=== PATIENT | female | born 1995 | race American Indian/Alaskan Native ===

== ENCOUNTER 2016-10-06 13:12 | Emergency (ER) | payer MEDICAID ==
[2016-10-06 13:27] VITALS: BP 137/93
[2016-10-06 14:04] LABS: Anion Gap 16 mmol/L; Blood Urea Nitrogen 9 mg/dL (7-17); Calcium 8.3 mg/dL (8.4-10.2); Carbon Dioxide 20 mmol/L (22-30); Chloride 102.6 mmol/L (98-107); Glucose 92 mg/dL (65-100); Potassium 3.5 mmol/L (3.6-5.0); Sodium 135 mmol/L (137-145)
[2016-10-06 14:42] LABS: Basophils % (Auto) 0.8 % (0.0-1.8); Eosinophils % (Auto) 0.5 % (0.0-4.3); Hematocrit 28.9 % (30.3-42.9); Hemoglobin 9.2 gm/dl (10.1-14.3); Mean Corpuscular HGB Conc 32 % (30-34); Platelet Count 326 K/mm3 (140-440); Red Blood Count 4.26 M/mm3 (3.65-5.03); Red Cell Distribution Width 19.7 % (13.2-15.2); White Blood Count 10.5 K/mm3 (4.5-11.0)
[2016-10-06 14:57] LABS: Mean Corpuscular Hemoglobin 22 pg (28-32); Mean Corpuscular Volume 68 fl (79-97)
--- NOTE | 2016-10-06 15:00 | XRay Report ---
CHEST XRAY, 2 VIEWS: History: Shortness of breath. Findings: There is coarsening of the perihilar markings. The lungs are clear and well expanded. The pleural spaces are clear. The cardiac silhouette and pulmonary vasculature are within normal limits for technique. The osseous structures appear within normal limits. IMPRESSION: Findings consistent with reactive airway disease or bronchiolitis.
== END 2016-10-06 19:58 | disposition left against medical advice (07) ==
LOC: ED 13:12
DX: R07.9 Chest pain, unspecified (principal); R06.02 Shortness of breath; J45.909 Unspecified asthma, uncomplicated; I10 Essential (primary) hypertension; Z53.21 Procedure and treatment not carried out due to patient leaving prior to being seen by health care provider
CPT/HCPCS: 36415; 71020; 80048; 84484; 85025; 93005; 93010

== ENCOUNTER 2017-03-09 11:38 | Inpatient (IN) | payer MEDICAID ==
[2017-03-09] MEDS ORDERED: NACL 0.9% 500 ML 500 ML IV ONE (11:48)
[2017-03-09 12:39] LABS: Albumin 2.3 g/dL (3.9-5); Albumin/Globulin Ratio 0.3 %; Alkaline Phosphatase 80 units/L (35-129); Anion Gap 16 mmol/L; BUN/Creatinine Ratio 20; Blood Urea Nitrogen 6 mg/dL (7-17); Calcium 7.9 mg/dL (8.4-10.2); Carbon Dioxide 21 mmol/L (22-30); Chloride 101.5 mmol/L (98-107); Glucose 76 mg/dL (65-100); Potassium 3.7 mmol/L (3.6-5.0); Sodium 135 mmol/L (137-145); Total Protein 9.3 g/dL (6.3-8.2)
[2017-03-09 12:40] LABS: Alanine Aminotransferase < 5 units/L (7-56)
[2017-03-09 12:48] LABS: Basophils % (Auto) 0.9 % (0.0-1.8); Eosinophils % (Auto) 2.8 % (0.0-4.3); Hematocrit 27.8 % (30.3-42.9); Hemoglobin 8.5 gm/dl (10.1-14.3); Mean Corpuscular HGB Conc 30 % (30-34); Mean Corpuscular Volume 72 fl (79-97); Platelet Count 354 K/mm3 (140-440); Red Blood Count 3.89 M/mm3 (3.65-5.03); White Blood Count 12.7 K/mm3 (4.5-11.0)
[2017-03-09 12:50] LABS: Mean Corpuscular Hemoglobin 22 pg (28-32); Red Cell Distribution Width 20.5 % (13.2-15.2)
[2017-03-09 12:58] LABS: INR 1.1 (0.87-1.13)
[2017-03-09 15:26] LABS: Bacteria,Urine 1+ /HPF (Negative); Bilirubin,Urine NEG (Negative); Blood,Urine MOD (Negative); Ketones,Urine NEG (Negative); Leukocyte Esterase,Urine TR (Negative); Mucus,Urine FEW /HPF; Nitrite,Urine NEG (Negative)
--- NOTE | 2017-03-09 16:18 | XRay Report ---
CHEST TWO VIEWS: 03/09/17 11:38:00 CLINICAL: Cough and fever. COMPARISON: 10/06/16 FINDINGS: Patchy opacities in the right upper lobe are new compared to the prior exam.Right hilar fullness. Bilateral perihilar reticular interstitial opacities are increased compared to the prior exam. Stable bilateral central peribronchial. No pleural effusion. Normal heart and pulmonary vessels.The bones and soft tissues are unremarkable. IMPRESSION: Right upper lobe pneumonia superimposed on chronic reactive airway disease.
[2017-03-09] MEDS ORDERED: ZITHROMAX PO ONE (17:48)
[2017-03-09] MEDS ORDERED: ROCEPHIN/NS 1 GM/50 ML 1 GM/50 ML BAG IV ONE (17:48)
[2017-03-09] MEDS ORDERED: NACL 0.9% 1000 ML IV ONE (17:48)
[2017-03-09] MEDS ORDERED: TYLENOL PO ONE (17:50)
--- NOTE | 2017-03-09 17:51 | Emergency Department Report ---
ED General Adult HPI - General Chief complaint: Upper Respiratory Infection Stated complaint: COUGHING, HEADACHE, FEVER Time Seen by Provider: 03/09/17 17:41 Source: patient, RN notes reviewed Mode of arrival: Ambulatory Limitations: No Limitations - History of Present Illness Initial comments: This is a 22-year-old female who is previously unknown to this provider. She does not have a local primary care doctor, she does not have a local infectious disease specialist, she is noncompliant with highly active antiretroviral therapy, does not know her CD4 count or viral load. Patient presents to the ER with a complaint of cough, fevers, chills, weakness. Also complains of mild frontal headache. Her symptoms are constant. They've been getting worse over the past few days. They do not radiate anywhere. They have no exacerbating or relieving factors. No neck pain or neck stiffness, no sore throat, no abdominal pain, noted no urinary symptoms. -: Gradual Location: head Consistency: intermittent Improves with: none Worsens with: none Associated Symptoms: cough, fever/chills, headaches, loss of appetite, malaise, shortness of breath, weakness. denies: confusion, chest pain - Related Data Home Medications Medication Instructions Recorded Confirmed Last Taken No Known Home Medications [No 10/06/16 10/06/16 Unknown Reported Home Medications] Allergies Allergy/AdvReac Type Severity Reaction Status Date / Time No Known Allergies Allergy Unverified 10/06/16 13:22 ED Review of Systems ROS: Stated complaint: COUGHING, HEADACHE, FEVER Other details as noted in HPI Constitutional: fever, malaise Eyes: denies: eye discharge Respiratory: cough, shortness of breath Cardiovascular: denies: syncope Gastrointestinal: denies: abdominal pain, vomiting Genitourinary: denies: dysuria Musculoskeletal: arthralgia, myalgia Neurological: weakness ED Past Medical Hx - Past Medical History Hx Hypertension: Yes Hx Asthma: Yes Hx HIV: Yes - Surgical History Additional Surgical History: Left ear surgery - Social History Smoking Status: Never Smoker Substance Use Type: None - Medications Home Medications: Home Medications Medication Instructions Recorded Confirmed Last Taken Type No Known Home Medications [No 10/06/16 10/06/16 Unknown History Reported Home Medications] ED Physical Exam - General Limitations: No Limitations General appearance: alert, in no apparent distress - Head Head exam: Present: atraumatic, normocephalic - Eye Eye exam: Present: normal appearance, EOMI - ENT ENT exam: Present: normal exam, mucous membranes dry - Neck Neck exam: Present: normal inspection, full ROM - Respiratory Respiratory exam: Present: rhonchi. Absent: respiratory distress - Cardiovascular Cardiovascular Exam: Present: normal rhythm, tachycardia, normal heart sounds. Absent: systolic murmur, diastolic murmur, rubs, gallop - GI/Abdominal GI/Abdominal exam: Present: soft, normal bowel sounds. Absent: distended, tenderness, guarding, rebound, rigid, pulsatile mass - Extremities Exam Extremities exam: Present: normal inspection, full ROM, normal capillary refill. Absent: calf tenderness - Back Exam Back exam: Present: normal inspection, full ROM. Absent: tenderness, CVA tenderness (R), paraspinal tenderness, vertebral tenderness - Neurological Exam Neurological exam: Present: alert, oriented X3, other (Extraocular movements intact. Tongue midline. No facial droop. Facial sensation intact to light touch in the V1, V2, V3 distribution bilaterally. 5 and 5 strength in 4 extremities.. Sensation is intact to light touch in 4 extremities.). Absent: motor sensory deficit - Psychiatric Psychiatric exam: Present: normal affect, normal mood - Skin Skin exam: Present: warm, dry, intact, normal color. Absent: rash ED Course Vital Signs 03/09/17 11:45 Temperature 99.3 F Pulse Rate 108 H Respiratory 22 Rate Blood Pressure 150/78 ED Medical Decision Making - Lab Data Result diagrams: 03/09/17 11:58 03/09/17 11:58 Vital Signs 03/09/17 11:45 Temperature 99.3 F Pulse Rate 108 H Respiratory 22 Rate Blood Pressure 150/78 Lab Results 03/09/17 03/09/17 03/09/17 Range/Units 11:58 11:58 11:58 WBC 12.7 H (4.5-11.0) K/mm3 RBC 3.89 (3.65-5.03) M/mm3 Hgb 8.5 L (10.1-14.3) gm/dl Hct 27.8 L (30.3-42.9) % MCV 72 L (79-97) fl MCH 22 L (28-32) pg MCHC 30 (30-34) % RDW 20.5 H (13.2-15.2) % Plt Count 354 (140-440) K/mm3 Lymph % (Auto) 31.9 (13.4-35.0) % [place] % (Auto) 11.7 H (0.0-7.3) % Eos % (Auto) 2.8 (0.0-4.3) % Baso % (Auto) 0.9 (0.0-1.8) % Lymph # 4.1 (1.2-5.4) K/mm3 [place] # 1.5 H (0.0-0.8) K/mm3 Eos # 0.4 (0.0-0.4) K/mm3 Baso # 0.1 (0.0-0.1) K/mm3 Seg Neutrophils % 52.7 (40.0-70.0) % Seg Neutrophils # 6.7 (1.8-7.7) K/mm3 PT 14.8 (12.2-14.9) Sec. INR 1.10 (0.87-1.13) VBG pH (7.320-7.420) Sodium 135 L (137-145) mmol/L Potassium 3.7 (3.6-5.0) mmol/L Chloride 101.5 (98-107) mmol/L Carbon Dioxide 21 L (22-30) mmol/L Anion Gap 16 mmol/L BUN 6 L (7-17) mg/dL Creatinine 0.3 L (0.7-1.2) mg/dL Estimated GFR > 60 ml/min BUN/Creatinine Ratio 20 % Glucose 76 (65-100) mg/dL Lactic Acid (0.7-2.0) mmol/L Calcium 7.9 L (8.4-10.2) mg/dL Total Bilirubin 0.30 (0.1-1.2) mg/dL AST 17 (5-40) units/L ALT < 5 L (7-56) units/L Alkaline Phosphatase 80 (35-129) units/L Total Protein 9.3 H (6.3-8.2) g/dL Albumin 2.3 L (3.9-5) g/dL Albumin/Globulin Ratio 0.3 % Urine Color (Yellow) Urine Turbidity (Clear) Urine pH (5.0-7.0) Ur Specific [place] (1.003-1.030) Urine Protein (Negative) mg/dL Urine Glucose (UA) (Negative) mg/dL Urine Ketones (Negative) mg/dL Urine Blood (Negative) Urine Nitrite (Negative) Ur Reducing Substances Urine Bilirubin (Negative) Urine Ictotest Urine Urobilinogen (<2.0) mg/dL Ur Leukocyte Esterase (Negative) Urine WBC (Auto) (0.0-6.0) /HPF Urine RBC (Auto) (0.0-6.0) /HPF U Epithel Cells (Auto) (0-13.0) /HPF Urine Bacteria (Auto) (Negative) /HPF Hyaline Casts /LPF Urine Mucus /HPF Urine HCG, Qual (Negative) 03/09/17 03/09/17 03/09/17 Range/Units 11:58 11:58 14:54 WBC (4.5-11.0) K/mm3 RBC (3.65-5.03) M/mm3 Hgb (10.1-14.3) gm/dl Hct (30.3-42.9) % MCV (79-97) fl MCH (28-32) pg MCHC (30-34) % RDW (13.2-15.2) % Plt Count (140-440) K/mm3 Lymph % (Auto) (13.4-35.0) % [place] % (Auto) (0.0-7.3) % Eos % (Auto) (0.0-4.3) % Baso % (Auto) (0.0-1.8) % Lymph # (1.2-5.4) K/mm3 [place] # (0.0-0.8) K/mm3 Eos # (0.0-0.4) K/mm3 Baso # (0.0-0.1) K/mm3 Seg Neutrophils % (40.0-70.0) % Seg Neutrophils # (1.8-7.7) K/mm3 PT (12.2-14.9) Sec. INR (0.87-1.13) VBG pH 7.384 (7.320-7.420) Sodium (137-145) mmol/L Potassium (3.6-5.0) mmol/L Chloride (98-107) mmol/L Carbon Dioxide (22-30) mmol/L Anion Gap mmol/L BUN (7-17) mg/dL Creatinine (0.7-1.2) mg/dL Estimated GFR ml/min BUN/Creatinine Ratio % Glucose (65-100) mg/dL Lactic Acid 1.30 (0.7-2.0) mmol/L Calcium (8.4-10.2) mg/dL Total Bilirubin (0.1-1.2) mg/dL AST (5-40) units/L ALT (7-56) units/L Alkaline Phosphatase (35-129) units/L Total Protein (6.3-8.2) g/dL Albumin (3.9-5) g/dL Albumin/Globulin Ratio % Urine Color Yellow (Yellow) Urine Turbidity Clear (Clear) Urine pH 6.0 (5.0-7.0) Ur Specific [place] 1.023 (1.003-1.030) Urine Protein 100 mg/dl (Negative) mg/dL Urine Glucose (UA) Neg (Negative) mg/dL Urine Ketones Neg (Negative) mg/dL Urine Blood Mod (Negative) Urine Nitrite Neg (Negative) Ur Reducing Substances Not Reportable Urine Bilirubin Neg (Negative) Urine Ictotest Not Reportable Urine Urobilinogen 4.0 (<2.0) mg/dL Ur Leukocyte Esterase Tr (Negative) Urine WBC (Auto) 3.0 (0.0-6.0) /HPF Urine RBC (Auto) 35.0 (0.0-6.0) /HPF U Epithel Cells (Auto) 7.0 (0-13.0) /HPF Urine Bacteria (Auto) 1+ (Negative) /HPF Hyaline Casts 3 /LPF Urine Mucus Few /HPF Urine HCG, Qual Negative (Negative) 03/09/17 Range/Units 15:00 WBC (4.5-11.0) K/mm3 RBC (3.65-5.03) M/mm3 Hgb (10.1-14.3) gm/dl Hct (30.3-42.9) % MCV (79-97) fl MCH (28-32) pg MCHC (30-34) % RDW (13.2-15.2) % Plt Count (140-440) K/mm3 Lymph % (Auto) (13.4-35.0) % [place] % (Auto) (0.0-7.3) % Eos % (Auto) (0.0-4.3) % Baso % (Auto) (0.0-1.8) % Lymph # (1.2-5.4) K/mm3 [place] # (0.0-0.8) K/mm3 Eos # (0.0-0.4) K/mm3 Baso # (0.0-0.1) K/mm3 Seg Neutrophils % (40.0-70.0) % Seg Neutrophils # (1.8-7.7) K/mm3 PT (12.2-14.9) Sec. INR (0.87-1.13) VBG pH (7.320-7.420) Sodium (137-145) mmol/L Potassium (3.6-5.0) mmol/L Chloride (98-107) mmol/L Carbon Dioxide (22-30) mmol/L Anion Gap mmol/L BUN (7-17) mg/dL Creatinine (0.7-1.2) mg/dL Estimated GFR ml/min BUN/Creatinine Ratio % Glucose (65-100) mg/dL Lactic Acid 2.20 H* (0.7-2.0) mmol/L Calcium (8.4-10.2) mg/dL Total Bilirubin (0.1-1.2) mg/dL AST (5-40) units/L ALT (7-56) units/L Alkaline Phosphatase (35-129) units/L Total Protein (6.3-8.2) g/dL Albumin (3.9-5) g/dL Albumin/Globulin Ratio % Urine Color (Yellow) Urine Turbidity (Clear) Urine pH (5.0-7.0) Ur Specific [place] (1.003-1.030) Urine Protein (Negative) mg/dL Urine Glucose (UA) (Negative) mg/dL Urine Ketones (Negative) mg/dL Urine Blood (Negative) Urine Nitrite (Negative) Ur Reducing Substances Urine Bilirubin (Negative) Urine Ictotest Urine Urobilinogen (<2.0) mg/dL Ur Leukocyte Esterase (Negative) Urine WBC (Auto) (0.0-6.0) /HPF Urine RBC (Auto) (0.0-6.0) /HPF U Epithel Cells (Auto) (0-13.0) /HPF Urine Bacteria (Auto) (Negative) /HPF Hyaline Casts /LPF Urine Mucus /HPF Urine HCG, Qual (Negative) - EKG Data -: EKG Interpreted by Dc - EKG Data 03/09/17 18:29 Sinus tachycardia, 103 bpm, normal axis, normal intervals, poor R progression, abnormal EKG, not morphologically consistent with ST elevation myocardial infarction - Radiology Data Radiology results: report reviewed, image reviewed X-ray of the chest demonstrates right upper lobe pneumonia. - Medical Decision Making Differential diagnosis, including but not limited to: Pneumonia, bronchitis, tuberculosis, HIV/AIDS, PCP Assessment and plan: 22-year-old female who by Angel of tachycardia, leukocytosis and x-ray findings rules in for sepsis and pneumonia. Immune compromise, patient will be placed on airborne precautions and she will be ruled out for tuberculosis. She'll be treated along with sepsis pathway for standard community-acquired pneumonia with ceftriaxone and azithromycin. LDH is ordered. Has rhonchi but no significant wheezing. Case presented to the Hospital physician, Dr. Pimentel, who accepted the patient to his service. Critical care attestation.: If time is entered above; I have spent that time in minutes in the direct care of this critically ill patient, excluding procedure time. ED Disposition Clinical Impression: SIRS (systemic inflammatory response syndrome) Right upper lobe pneumonia Qualifiers: Pneumonia type: due to unspecified organism Qualified Code(s): J18.1 - Lobar pneumonia, unspecified organism Disposition: -09 OP ADMIT IP TO THIS HOSP Is pt being admited?: Yes Condition: Good Instructions: Bacterial Pneumonia (ED) Referrals: PRIMARY CARE, [Primary Care Provider] - 3-5 Days
[2017-03-09] MEDS ORDERED: cefTRIAXone 1 GM in NACL 0.9% 20 ML IV ONE (18:00)
[2017-03-09] MEDS ORDERED: ZOFRAN IV PRN (22:02)
[2017-03-09] MEDS ORDERED: DULCOLAX PR PRN (22:02)
[2017-03-09] MEDS ORDERED: TYLENOL PO PRN (22:02)
[2017-03-09] MEDS ORDERED: MILK OF MAGNESIA PO PRN (22:02)
--- NOTE | 2017-03-09 22:02 | History and Physical Report ---
History of Present Illness Date of examination: 03/09/17 Date of admission: 03/09/17 18:30 Chief complaint: See in reports -dictated H/p History of present illness: See Dictated H/p in reports Medications and Allergies Allergies Allergy/AdvReac Type Severity Reaction Status Date / Time No Known Allergies Allergy Unverified 10/06/16 13:22 Home Medications Medication Instructions Recorded Confirmed Last Taken Type No Known Home Medications [No 10/06/16 03/09/17 Unknown History Reported Home Medications] Exam - Constitutional Vitals: Temp Pulse Resp BP Pulse Ox 98.5 F 93 H 24 122/79 100 03/09/17 21:09 03/09/17 21:09 03/09/17 21:09 03/09/17 21:09 03/09/17 21:09 Results - Labs CBC & Chem 7: 03/10/17 07:59 03/10/17 07:59 Labs: Laboratory Last Values WBC 12.7 K/mm3 (4.5-11.0) H 03/09/17 11:58 RBC 3.89 M/mm3 (3.65-5.03) 03/09/17 11:58 Hgb 8.5 gm/dl (10.1-14.3) L 03/09/17 11:58 Hct 27.8 % (30.3-42.9) L 03/09/17 11:58 MCV 72 fl (79-97) L 03/09/17 11:58 MCH 22 pg (28-32) L 03/09/17 11:58 MCHC 30 % (30-34) 03/09/17 11:58 RDW 20.5 % (13.2-15.2) H 03/09/17 11:58 Plt Count 354 K/mm3 (140-440) 03/09/17 11:58 Lymph % (Auto) 31.9 % (13.4-35.0) 03/09/17 11:58 [place] % (Auto) 11.7 % (0.0-7.3) H 03/09/17 11:58 Eos % (Auto) 2.8 % (0.0-4.3) 03/09/17 11:58 Baso % (Auto) 0.9 % (0.0-1.8) 03/09/17 11:58 Lymph # 4.1 K/mm3 (1.2-5.4) 03/09/17 11:58 [place] # 1.5 K/mm3 (0.0-0.8) H 03/09/17 11:58 Eos # 0.4 K/mm3 (0.0-0.4) 03/09/17 11:58 Baso # 0.1 K/mm3 (0.0-0.1) 03/09/17 11:58 Seg Neutrophils % 52.7 % (40.0-70.0) 03/09/17 11:58 Seg Neutrophils # 6.7 K/mm3 (1.8-7.7) 03/09/17 11:58 PT 14.8 Sec. (12.2-14.9) 03/09/17 11:58 INR 1.10 (0.87-1.13) 03/09/17 11:58 VBG pH 7.384 (7.320-7.420) 03/09/17 11:58 Sodium 135 mmol/L (137-145) L 03/09/17 11:58 Potassium 3.7 mmol/L (3.6-5.0) 03/09/17 11:58 Chloride 101.5 mmol/L (98-107) 03/09/17 11:58 Carbon Dioxide 21 mmol/L (22-30) L 03/09/17 11:58 Anion Gap 16 mmol/L 03/09/17 11:58 BUN 6 mg/dL (7-17) L 03/09/17 11:58 Creatinine 0.3 mg/dL (0.7-1.2) L 03/09/17 11:58 Estimated GFR > 60 ml/min 03/09/17 11:58 BUN/Creatinine Ratio 20 % 03/09/17 11:58 Glucose 76 mg/dL (65-100) 03/09/17 11:58 Lactic Acid 2.20 mmol/L (0.7-2.0) H* 03/09/17 15:00 Calcium 7.9 mg/dL (8.4-10.2) L 03/09/17 11:58 Total Bilirubin 0.30 mg/dL (0.1-1.2) 03/09/17 11:58 AST 17 units/L (5-40) 03/09/17 11:58 ALT < 5 units/L (7-56) L 03/09/17 11:58 Alkaline Phosphatase 80 units/L (35-129) 03/09/17 11:58 Lactate Dehydrogenase 144 units/L (91-180) 03/09/17 18:31 Total Protein 9.3 g/dL (6.3-8.2) H 03/09/17 11:58 Albumin 2.3 g/dL (3.9-5) L 03/09/17 11:58 Albumin/Globulin Ratio 0.3 % 03/09/17 11:58 Urine Color Yellow (Yellow) 03/09/17 14:54 Urine Turbidity Clear (Clear) 03/09/17 14:54 Urine pH 6.0 (5.0-7.0) 03/09/17 14:54 Ur Specific [place] 1.023 (1.003-1.030) 03/09/17 14:54 Urine Protein 100 mg/dl mg/dL (Negative) 03/09/17 14:54 Urine Glucose (UA) Neg mg/dL (Negative) 03/09/17 14:54 Urine Ketones Neg mg/dL (Negative) 03/09/17 14:54 Urine Blood Mod (Negative) 03/09/17 14:54 Urine Nitrite Neg (Negative) 03/09/17 14:54 Ur Reducing Substances Not Reportable 03/09/17 14:54 Urine Bilirubin Neg (Negative) 03/09/17 14:54 Urine Ictotest Not Reportable 03/09/17 14:54 Urine Urobilinogen 4.0 mg/dL (<2.0) 03/09/17 14:54 Ur Leukocyte Esterase Tr (Negative) 03/09/17 14:54 Urine WBC (Auto) 3.0 /HPF (0.0-6.0) 03/09/17 14:54 Urine RBC (Auto) 35.0 /HPF (0.0-6.0) 03/09/17 14:54 U Epithel Cells (Auto) 7.0 /HPF (0-13.0) 03/09/17 14:54 Urine Bacteria (Auto) 1+ /HPF (Negative) 03/09/17 14:54 Hyaline Casts 3 /LPF 03/09/17 14:54 Urine Mucus Few /HPF 03/09/17 14:54 Urine HCG, Qual Negative (Negative) 03/09/17 14:54
[2017-03-09] MEDS ORDERED: MORPHINE IV PRN (22:03)
[2017-03-09] MEDS ORDERED: PERCOCET 5/325 PO PRN (22:03)
[2017-03-10] MEDS: D5NS 1,000 ML IV SCH ×2 (01:45→11:09)
[2017-03-10 08:34] LABS: Hematocrit 27.2 % (30.3-42.9); Hemoglobin 8.4 gm/dl (10.1-14.3); Mean Corpuscular HGB Conc 31 % (30-34); Mean Corpuscular Hemoglobin 22 pg (28-32); Mean Corpuscular Volume 71 fl (79-97); Platelet Count 291 K/mm3 (140-440); Red Blood Count 3.85 M/mm3 (3.65-5.03); Red Cell Distribution Width 20.3 % (13.2-15.2); White Blood Count 8.1 K/mm3 (4.5-11.0)
[2017-03-10 08:44] LABS: Albumin 2.1 g/dL (3.9-5); Albumin/Globulin Ratio 0.3 %; Alkaline Phosphatase 70 units/L (35-129); Anion Gap 14 mmol/L; BUN/Creatinine Ratio 13; Blood Urea Nitrogen 4 mg/dL (7-17); Calcium 7.7 mg/dL (8.4-10.2); Carbon Dioxide 20 mmol/L (22-30); Chloride 107.1 mmol/L (98-107); Glucose 93 mg/dL (65-100); Potassium 3.6 mmol/L (3.6-5.0); Sodium 137 mmol/L (137-145); Total Protein 8.7 g/dL (6.3-8.2)
[2017-03-10 08:45] LABS: Alanine Aminotransferase < 5 units/L (7-56)
[2017-03-10 09:32] LABS: Anisocytosis 1+; Basophils % (Manual) 0 % (0.0-1.8); Blastocytes % (Manual) 0 %; Diff Status Complete; Platelet Estimate Consistent w Auto
[2017-03-10] MEDS ORDERED: ROCEPHIN/NS 2 GM/100 ML 2 GM/100 ML BAG IV SCH (10:00)
[2017-03-10] MEDS ORDERED: ZITHROMAX 500 MG in NACL 0.9% 250ML 250 ML IV SCH (10:00)
--- NOTE | 2017-03-10 10:13 | History and Physical Report ---
CHIEF COMPLAINT: Cough and chills of 1-week duration. HISTORY OF PRESENT ILLNESS: A 22-year-old female with recently diagnosed HIV, comes in for cough and shortness of breath of 1-month duration, but more so for the last 1 week. Has been having cough, fevers, chills, and weakness. Cough productive of mucoid sputum. No chest pain. No radiation. No neck pain. No altered sensorium. PAST MEDICAL HISTORY: As mentioned, hypertension, asthma, and HIV. PAST SURGICAL HISTORY: Left ear surgery. SOCIAL HISTORY: Does not smoke. No alcohol, no recreational drugs. FAMILY HISTORY: Hypertension. CURRENT MEDICATIONS: None. REVIEW OF SYSTEMS: Significant for fever, chills, cough, shortness of breath for 1 week. Cough off and on for the last 1 month. PHYSICAL EXAMINATION: GENERAL: Young female, cooperative during examination. VITAL SIGNS: Temperature is 97.4, pulse is 92, respirations 17, blood pressure is 127/79. HEENT: Unremarkable. Pupils equal and reactive. NECK: Supple, no lymphadenopathy, no thyromegaly. LUNGS: Scattered rhonchi bilaterally. CARDIOVASCULAR: S1, S2 heard. No gallop, no murmur, no rub. Apical impulse in left fifth intercostal space and midclavicular line. ABDOMEN: Soft and benign. No hepatosplenomegaly. No guarding, no rigidity. Hernial orifices are normal. EXTREMITIES: Good pedal pulses. No pedal edema. CENTRAL NERVOUS SYSTEM: Alert and oriented x 4, nonfocal exam. SKIN: Normal. LABORATORY DATA: White count is 12,700, H and H is 8.5 and 27.8, platelet count is 354,000. Sodium is 135, potassium is 3.7, chloride is 101.5, bicarb is 21, BUN and creatinine 6 and 0.3, glucose is 76. Chest x-ray shows right upper lobe pneumonia superimposed and chronic reactive airway disease, bilateral perihilar reticular interstitial opacities. ASSESSMENT AND PLAN: 1. Right upper lobe pneumonia, probably community acquired pneumonia, but tuberculosis to be ruled out because of 1-month duration of cough and low-grade fevers and chills. I will request ID consult. The patient started on empirically Rocephin and Zithromax to cover community-acquired pneumonia organisms. 2. Hypertension by history. The patient not on any medications. Blood pressures have been normal. We will initiate blood pressure medication if necessary. 3. Asthma. Bronchodilator as necessary. 4. Human immunodeficiency virus disease. We will defer to ID. The patient to follow up with ID clinic as outpatient. 5. DVT prophylaxis. Lovenox 40 mg subcutaneous daily. The patient is isolated. JOB# [id number] GEORGE/SHAHIDA
[2017-03-10] MEDS: cefTRIAXone 1 GM in NACL 0.9% 20 ML IV SCH (10:39)
[2017-03-10] MEDS: PEPCID PO SCH ×2 (10:40→22:50)
--- NOTE | 2017-03-10 13:11 | Progress Note ---
Assessment and Plan Assessment and plan: Right upper lobe pneumonia. Patient admitted to Med/Surg. Continue Rocephin and Zithromax. May be community acquired . need to rule out tuberculosis since patient has HIV positive. Obtain sputum AFB 3. Continue airborne isolation. ID Physician consulted. HIV infection. Patient noncompliant Hypertension. BP stable. will monitor. Asthma. Albuterol prn. DVT prophylaxis. heparin subcut. History Interval history: Fever and chills Cough Gen weakness Hospitalist Physical - Physical exam Narrative exam: GEN APPEARANCE : Not in acute distress, HEENT: Normocephalic Atraumatic NECK : supple, no JVD LUNGS: Crackles right upper lung field, no wheeze HEART: S1 and S2 regular, no murmurs, rubs or gallop, ABD: Soft, no tenderness, no distension, normal bowel sounds EXT: No edema, no clubbing, no cyanosis NEURO: Awake,alert,oriented x 3. No focal signs - Constitutional Vitals: Temp Pulse Resp BP Pulse Ox 98.8 F 96 H 20 127/71 97 03/10/17 08:29 03/10/17 08:29 03/10/17 08:29 03/10/17 08:29 03/10/17 08:29 Results - Labs CBC & Chem 7: 03/10/17 07:59 03/10/17 07:59 Labs: Laboratory Last Values WBC 8.1 K/mm3 (4.5-11.0) 03/10/17 07:59 RBC 3.85 M/mm3 (3.65-5.03) 03/10/17 07:59 Hgb 8.4 gm/dl (10.1-14.3) L 03/10/17 07:59 Hct 27.2 % (30.3-42.9) L 03/10/17 07:59 MCV 71 fl (79-97) L 03/10/17 07:59 MCH 22 pg (28-32) L 03/10/17 07:59 MCHC 31 % (30-34) 03/10/17 07:59 RDW 20.3 % (13.2-15.2) H 03/10/17 07:59 Plt Count 291 K/mm3 (140-440) 03/10/17 07:59 Lymph % (Auto) 31.9 % (13.4-35.0) 03/09/17 11:58 [place] % (Auto) 11.7 % (0.0-7.3) H 03/09/17 11:58 Eos % (Auto) 2.8 % (0.0-4.3) 03/09/17 11:58 Baso % (Auto) Coin Machine Operator 03/10/17 07:59 Lymph # 4.1 K/mm3 (1.2-5.4) 03/09/17 11:58 [place] # 1.5 K/mm3 (0.0-0.8) H 03/09/17 11:58 Eos # 0.4 K/mm3 (0.0-0.4) 03/09/17 11:58 Baso # 0.1 K/mm3 (0.0-0.1) 03/09/17 11:58 Add Manual Diff Complete 03/10/17 07:59 Total Counted 100 03/10/17 07:59 Seg Neutrophils % 52.7 % (40.0-70.0) 03/09/17 11:58 Seg Neuts % (Manual) 49.0 % (40.0-70.0) 03/10/17 07:59 Band Neutrophils % 0 % 03/10/17 07:59 Lymphocytes % (Manual) 33.0 % (13.4-35.0) 03/10/17 07:59 Reactive Lymphs % (Man) 0 % 03/10/17 07:59 Monocytes % (Manual) 12.0 % (0.0-7.3) H 03/10/17 07:59 Eosinophils % (Manual) 6.0 % (0.0-4.3) H 03/10/17 07:59 Basophils % (Manual) 0 % (0.0-1.8) 03/10/17 07:59 Metamyelocytes % 0 % 03/10/17 07:59 Myelocytes % 0 % 03/10/17 07:59 Promyelocytes % 0 % 03/10/17 07:59 Blast Cells % 0 % 03/10/17 07:59 Nucleated RBC % Not Reportable 03/10/17 07:59 Seg Neutrophils # 6.7 K/mm3 (1.8-7.7) 03/09/17 11:58 Seg Neutrophils # Man 4.0 K/mm3 (1.8-7.7) 03/10/17 07:59 Band Neutrophils # 0.0 K/mm3 03/10/17 07:59 Lymphocytes # (Manual) 2.7 K/mm3 (1.2-5.4) 03/10/17 07:59 Abs React Lymphs (Man) 0.0 K/mm3 03/10/17 07:59 Monocytes # (Manual) 1.0 K/mm3 (0.0-0.8) H 03/10/17 07:59 Eosinophils # (Manual) 0.5 K/mm3 (0.0-0.4) H 03/10/17 07:59 Basophils # (Manual) 0.0 K/mm3 (0.0-0.1) 03/10/17 07:59 Metamyelocytes # 0.0 K/mm3 03/10/17 07:59 Myelocytes # 0.0 K/mm3 03/10/17 07:59 Promyelocytes # 0.0 K/mm3 03/10/17 07:59 Blast Cells # 0.0 K/mm3 03/10/17 07:59 WBC Morphology Not Reportable 03/10/17 07:59 Hypersegmented Neuts Not Reportable 03/10/17 07:59 Hyposegmented Neuts Not Reportable 03/10/17 07:59 Hypogranular Neuts Not Reportable 03/10/17 07:59 Smudge Cells Not Reportable 03/10/17 07:59 Toxic Granulation Not Reportable 03/10/17 07:59 Toxic Vacuolation Not Reportable 03/10/17 07:59 Dohle Bodies Not Reportable 03/10/17 07:59 Pelger-Huet Anomaly Not Reportable 03/10/17 07:59 Daija Rods Not Reportable 03/10/17 07:59 Platelet Estimate Consistent w auto 03/10/17 07:59 Clumped Platelets Not Reportable 03/10/17 07:59 Plt Clumps, EDTA Not Reportable 03/10/17 07:59 Large Platelets Not Reportable 03/10/17 07:59 Giant Platelets Not Reportable 03/10/17 07:59 Platelet Satelliting Not Reportable 03/10/17 07:59 Plt Morphology Comment Not Reportable 03/10/17 07:59 RBC Morphology Not Reportable 03/10/17 07:59 Dimorphic RBCs Not Reportable 03/10/17 07:59 Polychromasia Not Reportable 03/10/17 07:59 Hypochromasia Not Reportable 03/10/17 07:59 Poikilocytosis Not Reportable 03/10/17 07:59 Anisocytosis 1+ 03/10/17 07:59 Microcytosis Not Reportable 03/10/17 07:59 Macrocytosis Not Reportable 03/10/17 07:59 Spherocytes Not Reportable 03/10/17 07:59 Pappenheimer Bodies Not Reportable 03/10/17 07:59 Sickle Cells Not Reportable 03/10/17 07:59 Target Cells Not Reportable 03/10/17 07:59 Tear Drop Cells Not Reportable 03/10/17 07:59 Ovalocytes Not Reportable 03/10/17 07:59 Helmet Cells Not Reportable 03/10/17 07:59 Frankel-[place]aug[place] Bodies Not Reportable 03/10/17 07:59 [place] Rings Not Reportable 03/10/17 07:59 [place] Cells Not Reportable 03/10/17 07:59 Bite Cells Not Reportable 03/10/17 07:59 Crenated Cell Not Reportable 03/10/17 07:59 Elliptocytes Not Reportable 03/10/17 07:59 Acanthocytes (Spur) Not Reportable 03/10/17 07:59 Rouleaux Not Reportable 03/10/17 07:59 Hemoglobin C Crystals Not Reportable 03/10/17 07:59 Schistocytes Not Reportable 03/10/17 07:59 Malaria parasites Not Reportable 03/10/17 07:59 Erich Bodies Not Reportable 03/10/17 07:59 Hem Pathologist Commnt No 03/10/17 07:59 PT 14.8 Sec. (12.2-14.9) 03/09/17 11:58 INR 1.10 (0.87-1.13) 03/09/17 11:58 VBG pH 7.384 (7.320-7.420) 03/09/17 11:58 Sodium 137 mmol/L (137-145) 03/10/17 07:59 Potassium 3.6 mmol/L (3.6-5.0) 03/10/17 07:59 Chloride 107.1 mmol/L (98-107) H 03/10/17 07:59 Carbon Dioxide 20 mmol/L (22-30) L 03/10/17 07:59 Anion Gap 14 mmol/L 03/10/17 07:59 BUN 4 mg/dL (7-17) L 03/10/17 07:59 Creatinine 0.3 mg/dL (0.7-1.2) L 03/10/17 07:59 Estimated GFR > 60 ml/min 03/10/17 07:59 BUN/Creatinine Ratio 13 % 03/10/17 07:59 Glucose 93 mg/dL (65-100) 03/10/17 07:59 Lactic Acid 2.20 mmol/L (0.7-2.0) H* 03/09/17 15:00 Calcium 7.7 mg/dL (8.4-10.2) L 03/10/17 07:59 Total Bilirubin 0.20 mg/dL (0.1-1.2) 03/10/17 07:59 AST 14 units/L (5-40) 03/10/17 07:59 ALT < 5 units/L (7-56) L 03/10/17 07:59 Alkaline Phosphatase 70 units/L (35-129) 03/10/17 07:59 Lactate Dehydrogenase 144 units/L (91-180) 03/09/17 18:31 Total Protein 8.7 g/dL (6.3-8.2) H 03/10/17 07:59 Albumin 2.1 g/dL (3.9-5) L 03/10/17 07:59 Albumin/Globulin Ratio 0.3 % 03/10/17 07:59 Urine Color Yellow (Yellow) 03/09/17 14:54 Urine Turbidity Clear (Clear) 03/09/17 14:54 Urine pH 6.0 (5.0-7.0) 03/09/17 14:54 Ur Specific [place] 1.023 (1.003-1.030) 03/09/17 14:54 Urine Protein 100 mg/dl mg/dL (Negative) 03/09/17 14:54 Urine Glucose (UA) Neg mg/dL (Negative) 03/09/17 14:54 Urine Ketones Neg mg/dL (Negative) 03/09/17 14:54 Urine Blood Mod (Negative) 03/09/17 14:54 Urine Nitrite Neg (Negative) 03/09/17 14:54 Ur Reducing Substances Not Reportable 03/09/17 14:54 Urine Bilirubin Neg (Negative) 03/09/17 14:54 Urine Ictotest Not Reportable 03/09/17 14:54 Urine Urobilinogen 4.0 mg/dL (<2.0) 03/09/17 14:54 Ur Leukocyte Esterase Tr (Negative) 03/09/17 14:54 Urine WBC (Auto) 3.0 /HPF (0.0-6.0) 03/09/17 14:54 Urine RBC (Auto) 35.0 /HPF (0.0-6.0) 03/09/17 14:54 U Epithel Cells (Auto) 7.0 /HPF (0-13.0) 03/09/17 14:54 Urine Bacteria (Auto) 1+ /HPF (Negative) 03/09/17 14:54 Hyaline Casts 3 /LPF 03/09/17 14:54 Urine Mucus Few /HPF 03/09/17 14:54 Urine HCG, Qual Negative (Negative) 03/09/17 14:54
[2017-03-10] MEDS ORDERED: PROVENTIL IH PRN (15:24)
--- NOTE | 2017-03-10 20:31 | Consultation ---
History of Present Illness - Reason for Consult Consult date: 03/10/17 HIV/pneumonia Requesting physician: PAO SUMMERS - History of Present Illness 22 years old female with history of HTN, asthma and congenital HIV off ART for 6 months. She moved from [facility] to [place], [place] and she has not established HIV care. Admitted on due to 2-week history of productive cough/yellow sputum associated with progressive SOB, generalized malaise and subjective fever. She is also c/o generalized pruritic rash allover her body. In the ED, temp 99.3, HR 108, R 22, BP 150/78, WBC 12.7, hg 8.5, plat 354, creat 0.3, lactate 2.2. UA neg. CXR showed RUL consolidation on chronic reactive airways. Micro: blood cx ngtd urine cx neg Past History Past Medical History: HIV/AIDS, hypertension, other (asthma, ) Past Surgical History: No surgical history Social history: no significant social history Family history: other (mother with HIV) Medications and Allergies Allergies Allergy/AdvReac Type Severity Reaction Status Date / Time No Known Allergies Allergy Unverified 10/06/16 13:22 Home Medications Medication Instructions Recorded Confirmed Last Taken Type No Known Home Medications [No 10/06/16 03/09/17 Unknown History Reported Home Medications] Active Meds: Active Medications Acetaminophen (Tylenol) 650 mg PO Q4H PRN PRN Reason: Pain MILD(1-3)/Fever >100.5/BARBER Albuterol (Proventil) 2.5 mg IH Q4HRT PRN PRN Reason: Shortness Of Breath Azithromycin (Zithromax) 500 mg PO QDAY DAVID Bisacodyl (Dulcolax) 10 mg [place] QDAY PRN PRN Reason: Constipation unrelieved by MOM Famotidine (Pepcid) 20 mg PO BID [facility] Last Admin: 03/10/17 10:40 Dose: 20 mg Heparin Sodium (Porcine) (Heparin) 5,000 unit SUB-Q Q8HR [facility] Ceftriaxone Sodium 1 gm/ (Sodium Chloride) 20 mls @ 20 mls/10 min IV Q24HR [facility] Last Admin: 03/10/17 10:39 Dose: 20 mls/10 min Magnesium Hydroxide (Milk Of Magnesia) 30 ml PO Q4H PRN PRN Reason: Constipation Morphine Sulfate (Morphine) 2 mg IV Q4H PRN PRN Reason: Pain, Moderate (4-6) Ondansetron HCl (Zofran) 4 mg IV Q8H PRN PRN Reason: N/V unrelieved by Reglan Oxycodone/Acetaminophen (Percocet 5/325) 1 tab PO Q6H PRN PRN Reason: Pain, Moderate (4-6) Review of Systems All systems: negative (as per HPI + weight loss) Physical Examination - Physical Exam Narrative exam: Alert in NAD KATIE, clear OP Lung scattered rales CV RRR Abd soft non tender Ext no edema Skin extensive nodular rash Neuro alert and oriented x 3 - Constitutional Vitals: Vital Signs Temp Pulse Resp BP Pulse Ox 98.7 F 89 18 104/57 99 03/10/17 16:21 03/10/17 16:00 03/10/17 16:21 03/10/17 16:21 03/10/17 16:00 Temperature -Last 24 Hours Temperature 98.7 F Temperature 98.8 F Temperature 98.7 F Temperature 98.3 F Temperature 97.4 F Temperature 98.5 F Results - Labs CBC & Chem 7: 03/10/17 07:59 03/10/17 07:59 Labs: Abnormal lab results 03/10/17 03/10/17 Range/Units 07:59 07:59 Hgb 8.4 L (10.1-14.3) gm/dl Hct 27.2 L (30.3-42.9) % MCV 71 L (79-97) fl MCH 22 L (28-32) pg RDW 20.3 H (13.2-15.2) % Monocytes % (Manual) 12.0 H (0.0-7.3) % Eosinophils % (Manual) 6.0 H (0.0-4.3) % Monocytes # (Manual) 1.0 H (0.0-0.8) K/mm3 Eosinophils # (Manual) 0.5 H (0.0-0.4) K/mm3 Chloride 107.1 H (98-107) mmol/L Carbon Dioxide 20 L (22-30) mmol/L BUN 4 L (7-17) mg/dL Creatinine 0.3 L (0.7-1.2) mg/dL Calcium 7.7 L (8.4-10.2) mg/dL ALT < 5 L (7-56) units/L Total Protein 8.7 H (6.3-8.2) g/dL Albumin 2.1 L (3.9-5) g/dL Assessment and Plan Assessment: 1) Sepsis: present on admission, manifested by tachycardia, leukocytosis, elevated lactate, source pneumonia 2) RUL pneumonia: ? opportunistic TB, fungal, bacterial 3) Congenital HIV-off ART for 6 months 4) Nodular rash: ? HIV ?scabies Plan: -start airborne and contact isolation until TB is ruled and scabies treated -f/u blood cx and sputum cx -check AFB x 3 -continue ceftriaxone and azithromycin -check HIV-viral load, CD4, genotype -obtain records from [facility] -start ivermectin 200 microgram /kg x 1 repeat in 2 weeks -add bactrim DS 1 tab qday for PJP prevention Nida Hanson
[2017-03-10] MEDS: HEPARIN SUB-Q SCH (22:50)
[2017-03-11] MEDS: HEPARIN SUB-Q SCH ×2 (08:15→14:00)
--- NOTE | 2017-03-11 09:01 | Progress Note ---
Assessment and Plan Assessment and plan: Right upper lobe pneumonia. Patient admitted to Med/Surg. Continue Rocephin and Zithromax. May be community acquired . need to rule out tuberculosis since patient has HIV positive. Obtain sputum AFB 3. Continue airborne isolation. ID Physician consulted. patient states she has given one specimen for AFB check HIV infection. Patient noncompliant Hypertension. BP stable. will monitor. Asthma. Albuterol prn. DVT prophylaxis. heparin subcut. History Interval history: Fever and chills Cough Gen weakness Hospitalist Physical - Physical exam Narrative exam: GEN APPEARANCE : Not in acute distress, HEENT: Normocephalic Atraumatic NECK : supple, no JVD LUNGS: Crackles right upper lung field, no wheeze HEART: S1 and S2 regular, no murmurs, rubs or gallop, ABD: Soft, no tenderness, no distension, normal bowel sounds EXT: No edema, no clubbing, no cyanosis NEURO: Awake,alert,oriented x 3. No focal signs Psych:Normal mood - Constitutional Vitals: Temp Pulse Resp BP Pulse Ox 98.8 F 91 H 14 118/76 96 03/11/17 07:43 03/11/17 07:43 03/11/17 07:43 03/11/17 07:43 03/11/17 07:43 Results - Labs CBC & Chem 7: 03/12/17 12:08 03/12/17 12:08 Labs: Laboratory Last Values WBC 8.1 K/mm3 (4.5-11.0) 03/10/17 07:59 RBC 3.85 M/mm3 (3.65-5.03) 03/10/17 07:59 Hgb 8.4 gm/dl (10.1-14.3) L 03/10/17 07:59 Hct 27.2 % (30.3-42.9) L 03/10/17 07:59 MCV 71 fl (79-97) L 03/10/17 07:59 MCH 22 pg (28-32) L 03/10/17 07:59 MCHC 31 % (30-34) 03/10/17 07:59 RDW 20.3 % (13.2-15.2) H 03/10/17 07:59 Plt Count 291 K/mm3 (140-440) 03/10/17 07:59 Lymph % (Auto) 31.9 % (13.4-35.0) 03/09/17 11:58 [place] % (Auto) 11.7 % (0.0-7.3) H 03/09/17 11:58 Eos % (Auto) 2.8 % (0.0-4.3) 03/09/17 11:58 Baso % (Auto) Interlocking And Signal Mechanic 03/10/17 07:59 Lymph # 4.1 K/mm3 (1.2-5.4) 03/09/17 11:58 [place] # 1.5 K/mm3 (0.0-0.8) H 03/09/17 11:58 Eos # 0.4 K/mm3 (0.0-0.4) 03/09/17 11:58 Baso # 0.1 K/mm3 (0.0-0.1) 03/09/17 11:58 Add Manual Diff Complete 03/10/17 07:59 Total Counted 100 03/10/17 07:59 Seg Neutrophils % 52.7 % (40.0-70.0) 03/09/17 11:58 Seg Neuts % (Manual) 49.0 % (40.0-70.0) 03/10/17 07:59 Band Neutrophils % 0 % 03/10/17 07:59 Lymphocytes % (Manual) 33.0 % (13.4-35.0) 03/10/17 07:59 Reactive Lymphs % (Man) 0 % 03/10/17 07:59 Monocytes % (Manual) 12.0 % (0.0-7.3) H 03/10/17 07:59 Eosinophils % (Manual) 6.0 % (0.0-4.3) H 03/10/17 07:59 Basophils % (Manual) 0 % (0.0-1.8) 03/10/17 07:59 Metamyelocytes % 0 % 03/10/17 07:59 Myelocytes % 0 % 03/10/17 07:59 Promyelocytes % 0 % 03/10/17 07:59 Blast Cells % 0 % 03/10/17 07:59 Nucleated RBC % Not Reportable 03/10/17 07:59 Seg Neutrophils # 6.7 K/mm3 (1.8-7.7) 03/09/17 11:58 Seg Neutrophils # Man 4.0 K/mm3 (1.8-7.7) 03/10/17 07:59 Band Neutrophils # 0.0 K/mm3 03/10/17 07:59 Lymphocytes # (Manual) 2.7 K/mm3 (1.2-5.4) 03/10/17 07:59 Abs React Lymphs (Man) 0.0 K/mm3 03/10/17 07:59 Monocytes # (Manual) 1.0 K/mm3 (0.0-0.8) H 03/10/17 07:59 Eosinophils # (Manual) 0.5 K/mm3 (0.0-0.4) H 03/10/17 07:59 Basophils # (Manual) 0.0 K/mm3 (0.0-0.1) 03/10/17 07:59 Metamyelocytes # 0.0 K/mm3 03/10/17 07:59 Myelocytes # 0.0 K/mm3 03/10/17 07:59 Promyelocytes # 0.0 K/mm3 03/10/17 07:59 Blast Cells # 0.0 K/mm3 03/10/17 07:59 WBC Morphology Not Reportable 03/10/17 07:59 Hypersegmented Neuts Not Reportable 03/10/17 07:59 Hyposegmented Neuts Not Reportable 03/10/17 07:59 Hypogranular Neuts Not Reportable 03/10/17 07:59 Smudge Cells Not Reportable 03/10/17 07:59 Toxic Granulation Not Reportable 03/10/17 07:59 Toxic Vacuolation Not Reportable 03/10/17 07:59 Dohle Bodies Not Reportable 03/10/17 07:59 Pelger-Huet Anomaly Not Reportable 03/10/17 07:59 Daija Rods Not Reportable 03/10/17 07:59 Platelet Estimate Consistent w auto 03/10/17 07:59 Clumped Platelets Not Reportable 03/10/17 07:59 Plt Clumps, EDTA Not Reportable 03/10/17 07:59 Large Platelets Not Reportable 03/10/17 07:59 Giant Platelets Not Reportable 03/10/17 07:59 Platelet Satelliting Not Reportable 03/10/17 07:59 Plt Morphology Comment Not Reportable 03/10/17 07:59 RBC Morphology Not Reportable 03/10/17 07:59 Dimorphic RBCs Not Reportable 03/10/17 07:59 Polychromasia Not Reportable 03/10/17 07:59 Hypochromasia Not Reportable 03/10/17 07:59 Poikilocytosis Not Reportable 03/10/17 07:59 Anisocytosis 1+ 03/10/17 07:59 Microcytosis Not Reportable 03/10/17 07:59 Macrocytosis Not Reportable 03/10/17 07:59 Spherocytes Not Reportable 03/10/17 07:59 Pappenheimer Bodies Not Reportable 03/10/17 07:59 Sickle Cells Not Reportable 03/10/17 07:59 Target Cells Not Reportable 03/10/17 07:59 Tear Drop Cells Not Reportable 03/10/17 07:59 Ovalocytes Not Reportable 03/10/17 07:59 Helmet Cells Not Reportable 03/10/17 07:59 Frankel-[place] Bodies Not Reportable 03/10/17 07:59 [place] Rings Not Reportable 03/10/17 07:59 [place] Cells Not Reportable 03/10/17 07:59 Bite Cells Not Reportable 03/10/17 07:59 Crenated Cell Not Reportable 03/10/17 07:59 Elliptocytes Not Reportable 03/10/17 07:59 Acanthocytes (Spur) Not Reportable 03/10/17 07:59 Rouleaux Not Reportable 03/10/17 07:59 Hemoglobin C Crystals Not Reportable 03/10/17 07:59 Schistocytes Not Reportable 03/10/17 07:59 Malaria parasites Not Reportable 03/10/17 07:59 Erich Bodies Not Reportable 03/10/17 07:59 Hem Pathologist Commnt No 03/10/17 07:59 PT 14.8 Sec. (12.2-14.9) 03/09/17 11:58 INR 1.10 (0.87-1.13) 03/09/17 11:58 VBG pH 7.384 (7.320-7.420) 03/09/17 11:58 Sodium 137 mmol/L (137-145) 03/10/17 07:59 Potassium 3.6 mmol/L (3.6-5.0) 03/10/17 07:59 Chloride 107.1 mmol/L (98-107) H 03/10/17 07:59 Carbon Dioxide 20 mmol/L (22-30) L 03/10/17 07:59 Anion Gap 14 mmol/L 03/10/17 07:59 BUN 4 mg/dL (7-17) L 03/10/17 07:59 Creatinine 0.3 mg/dL (0.7-1.2) L 03/10/17 07:59 Estimated GFR > 60 ml/min 03/10/17 07:59 BUN/Creatinine Ratio 13 % 03/10/17 07:59 Glucose 93 mg/dL (65-100) 03/10/17 07:59 Lactic Acid 2.20 mmol/L (0.7-2.0) H* 03/09/17 15:00 Calcium 7.7 mg/dL (8.4-10.2) L 03/10/17 07:59 Total Bilirubin 0.20 mg/dL (0.1-1.2) 03/10/17 07:59 AST 14 units/L (5-40) 03/10/17 07:59 ALT < 5 units/L (7-56) L 03/10/17 07:59 Alkaline Phosphatase 70 units/L (35-129) 03/10/17 07:59 Lactate Dehydrogenase 144 units/L (91-180) 03/09/17 18:31 Total Protein 8.7 g/dL (6.3-8.2) H 03/10/17 07:59 Albumin 2.1 g/dL (3.9-5) L 03/10/17 07:59 Albumin/Globulin Ratio 0.3 % 03/10/17 07:59 Urine Color Yellow (Yellow) 03/09/17 14:54 Urine Turbidity Clear (Clear) 03/09/17 14:54 Urine pH 6.0 (5.0-7.0) 03/09/17 14:54 Ur Specific [place] 1.023 (1.003-1.030) 03/09/17 14:54 Urine Protein 100 mg/dl mg/dL (Negative) 03/09/17 14:54 Urine Glucose (UA) Neg mg/dL (Negative) 03/09/17 14:54 Urine Ketones Neg mg/dL (Negative) 03/09/17 14:54 Urine Blood Mod (Negative) 03/09/17 14:54 Urine Nitrite Neg (Negative) 03/09/17 14:54 Ur Reducing Substances Not Reportable 03/09/17 14:54 Urine Bilirubin Neg (Negative) 03/09/17 14:54 Urine Ictotest Not Reportable 03/09/17 14:54 Urine Urobilinogen 4.0 mg/dL (<2.0) 03/09/17 14:54 Ur Leukocyte Esterase Tr (Negative) 03/09/17 14:54 Urine WBC (Auto) 3.0 /HPF (0.0-6.0) 03/09/17 14:54 Urine RBC (Auto) 35.0 /HPF (0.0-6.0) 03/09/17 14:54 U Epithel Cells (Auto) 7.0 /HPF (0-13.0) 03/09/17 14:54 Urine Bacteria (Auto) 1+ /HPF (Negative) 03/09/17 14:54 Hyaline Casts 3 /LPF 03/09/17 14:54 Urine Mucus Few /HPF 03/09/17 14:54 Urine HCG, Qual Negative (Negative) 03/09/17 14:54
[2017-03-11] MEDS: ZITHROMAX PO SCH (10:00)
[2017-03-11] MEDS: cefTRIAXone 1 GM in NACL 0.9% 20 ML IV SCH (10:00)
[2017-03-11] MEDS: PEPCID PO SCH (10:00)
--- NOTE | 2017-03-11 14:53 | Progress Note ---
Assessment and Plan Assessment: 1) Sepsis: better, source pneumonia 2) RUL pneumonia: ? opportunistic TB, fungal, bacterial 3) Congenital HIV-off ART for 6 months 4) Nodular rash: ? HIV ?scabies Plan: -continue airborne and contact isolation until TB is ruled and scabies treated -f/u blood cx and sputum cx - pending -check AFB x 3 - pending -continue ceftriaxone and azithromycin -check HIV-viral load, CD4, genotype - pending -obtain records from [facility] -start ivermectin 200 microgram /kg x 1 repeat in 2 weeks - non on stock -start permethrim for presumed scabies -continue bactrim DS 1 tab qday for PJP prevention Nida Hanson Subjective Date of service: 03/11/17 Principal diagnosis: sepsis Interval history: Feels better, no fever. Still coughing Current Antimicrobials: Azithromycin Ceftriaxone Previous Antimicrobials: Microbiology: Blood cultures: 03/09 ngtd Urine cultures: 03/09 ngtd Respiratory cultures: Objective - Exam Narrative Exam: Alert in NAD KATIE, clear OP Lung scattered rales CV RRR Abd soft non tender Ext no edema Skin extensive nodular rash Neuro alert and oriented x 3 - Constitutional Vitals: Vital Signs Temp Pulse Resp BP Pulse Ox 98.8 F 91 H 20 118/76 96 03/11/17 07:43 03/11/17 07:43 03/11/17 13:06 03/11/17 07:43 03/11/17 07:43 Temperature -Last 24 Hours Temperature 98.8 F Temperature 99.4 F Temperature 98.7 F - Labs CBC & Chem 7: 03/10/17 07:59 03/10/17 07:59
[2017-03-11] MEDS: BACTRIM DS PO SCH (16:00)
[2017-03-11] MEDS ORDERED: ACTICIN TP ONE (16:00)
[2017-03-12] MEDS: BENADRYL IV PRN ×2 (01:35→18:55)
[2017-03-12] MEDS: PEPCID PO SCH ×3 (01:35→22:00)
[2017-03-12] MEDS: HEPARIN SUB-Q SCH ×4 (01:36→22:00)
[2017-03-12] MEDS ORDERED: ROCEPHIN/NS 2 GM/100 ML 2 GM/100 ML BAG IV SCH (10:00)
[2017-03-12] MEDS: ZITHROMAX PO SCH (10:30)
[2017-03-12] MEDS: cefTRIAXone 2 GM in NACL 0.9% 20 ML IV SCH (10:31)
[2017-03-12 12:19] LABS: Hematocrit 30.4 % (30.3-42.9); Hemoglobin 9.6 gm/dl (10.1-14.3); Mean Corpuscular HGB Conc 32 % (30-34); Mean Corpuscular Volume 70 fl (79-97); Platelet Count 330 K/mm3 (140-440); Red Blood Count 4.32 M/mm3 (3.65-5.03); White Blood Count 6.9 K/mm3 (4.5-11.0)
[2017-03-12 12:38] LABS: Anion Gap 15 mmol/L; BUN/Creatinine Ratio 18; Blood Urea Nitrogen 7 mg/dL (7-17); Calcium 8.5 mg/dL (8.4-10.2); Carbon Dioxide 22 mmol/L (22-30); Chloride 102.5 mmol/L (98-107); Glucose 90 mg/dL (65-100); Potassium 3.8 mmol/L (3.6-5.0); Sodium 136 mmol/L (137-145)
[2017-03-12 12:43] LABS: Mean Corpuscular Hemoglobin 22 pg (28-32); Red Cell Distribution Width 20.5 % (13.2-15.2)
--- NOTE | 2017-03-12 13:22 | Progress Note ---
Assessment and Plan Assessment and plan: Right upper lobe pneumonia. Patient admitted to Med/Surg. Continue Rocephin and Zithromax. May be community acquired . need to rule out tuberculosis since patient has HIV positive. Obtain sputum AFB 3. Continue airborne isolation. ID Physician consulted. patient states she has given one specimen for AFB check. No fever since admitted HIV infection. Patient noncompliant Hypertension. BP stable. will monitor. Asthma. Albuterol prn. DVT prophylaxis. heparin subcut. History Interval history: Fever and chills, No more fever Cough with yellow sputum Gen weakness Hospitalist Physical - Physical exam Narrative exam: GEN APPEARANCE : Not in acute distress, HEENT: Normocephalic Atraumatic NECK : supple, no JVD LUNGS: Crackles right upper lung field, no wheeze HEART: S1 and S2 regular, no murmurs, rubs or gallop, ABD: Soft, no tenderness, no distension, normal bowel sounds EXT: No edema, no clubbing, no cyanosis NEURO: Awake,alert,oriented x 3. No focal signs Psych:Normal mood - Constitutional Vitals: Temp Pulse Resp BP Pulse Ox 98.5 F 108 H 24 126/80 97 03/12/17 12:11 03/12/17 12:11 03/12/17 12:11 03/12/17 12:11 03/12/17 12:11 Results - Labs CBC & Chem 7: 03/12/17 12:08 03/12/17 12:08 Labs: Laboratory Last Values WBC 6.9 K/mm3 (4.5-11.0) 03/12/17 12:08 RBC 4.32 M/mm3 (3.65-5.03) 03/12/17 12:08 Hgb 9.6 gm/dl (10.1-14.3) L 03/12/17 12:08 Hct 30.4 % (30.3-42.9) 03/12/17 12:08 MCV 70 fl (79-97) L 03/12/17 12:08 MCH 22 pg (28-32) L 03/12/17 12:08 MCHC 32 % (30-34) 03/12/17 12:08 RDW 20.5 % (13.2-15.2) H 03/12/17 12:08 Plt Count 330 K/mm3 (140-440) 03/12/17 12:08 Lymph % (Auto) 31.9 % (13.4-35.0) 03/09/17 11:58 [place] % (Auto) 11.7 % (0.0-7.3) H 03/09/17 11:58 Eos % (Auto) 2.8 % (0.0-4.3) 03/09/17 11:58 Baso % (Auto) Round Up Ring Hand 03/10/17 07:59 Lymph # 4.1 K/mm3 (1.2-5.4) 03/09/17 11:58 [place] # 1.5 K/mm3 (0.0-0.8) H 03/09/17 11:58 Eos # 0.4 K/mm3 (0.0-0.4) 03/09/17 11:58 Baso # 0.1 K/mm3 (0.0-0.1) 03/09/17 11:58 Add Manual Diff Complete 03/10/17 07:59 Total Counted 100 03/10/17 07:59 Seg Neutrophils % 52.7 % (40.0-70.0) 03/09/17 11:58 Seg Neuts % (Manual) 49.0 % (40.0-70.0) 03/10/17 07:59 Band Neutrophils % 0 % 03/10/17 07:59 Lymphocytes % (Manual) 33.0 % (13.4-35.0) 03/10/17 07:59 Reactive Lymphs % (Man) 0 % 03/10/17 07:59 Monocytes % (Manual) 12.0 % (0.0-7.3) H 03/10/17 07:59 Eosinophils % (Manual) 6.0 % (0.0-4.3) H 03/10/17 07:59 Basophils % (Manual) 0 % (0.0-1.8) 03/10/17 07:59 Metamyelocytes % 0 % 03/10/17 07:59 Myelocytes % 0 % 03/10/17 07:59 Promyelocytes % 0 % 03/10/17 07:59 Blast Cells % 0 % 03/10/17 07:59 Nucleated RBC % Not Reportable 03/10/17 07:59 Seg Neutrophils # 6.7 K/mm3 (1.8-7.7) 03/09/17 11:58 Seg Neutrophils # Man 4.0 K/mm3 (1.8-7.7) 03/10/17 07:59 Band Neutrophils # 0.0 K/mm3 03/10/17 07:59 Lymphocytes # (Manual) 2.7 K/mm3 (1.2-5.4) 03/10/17 07:59 Abs React Lymphs (Man) 0.0 K/mm3 03/10/17 07:59 Monocytes # (Manual) 1.0 K/mm3 (0.0-0.8) H 03/10/17 07:59 Eosinophils # (Manual) 0.5 K/mm3 (0.0-0.4) H 03/10/17 07:59 Basophils # (Manual) 0.0 K/mm3 (0.0-0.1) 03/10/17 07:59 Metamyelocytes # 0.0 K/mm3 03/10/17 07:59 Myelocytes # 0.0 K/mm3 03/10/17 07:59 Promyelocytes # 0.0 K/mm3 03/10/17 07:59 Blast Cells # 0.0 K/mm3 03/10/17 07:59 WBC Morphology Not Reportable 03/10/17 07:59 Hypersegmented Neuts Not Reportable 03/10/17 07:59 Hyposegmented Neuts Not Reportable 03/10/17 07:59 Hypogranular Neuts Not Reportable 03/10/17 07:59 Smudge Cells Not Reportable 03/10/17 07:59 Toxic Granulation Not Reportable 03/10/17 07:59 Toxic Vacuolation Not Reportable 03/10/17 07:59 Dohle Bodies Not Reportable 03/10/17 07:59 Pelger-Huet Anomaly Not Reportable 03/10/17 07:59 Daija Rods Not Reportable 03/10/17 07:59 Platelet Estimate Consistent w auto 03/10/17 07:59 Clumped Platelets Not Reportable 03/10/17 07:59 Plt Clumps, EDTA Not Reportable 03/10/17 07:59 Large Platelets Not Reportable 03/10/17 07:59 Giant Platelets Not Reportable 03/10/17 07:59 Platelet Satelliting Not Reportable 03/10/17 07:59 Plt Morphology Comment Not Reportable 03/10/17 07:59 RBC Morphology Not Reportable 03/10/17 07:59 Dimorphic RBCs Not Reportable 03/10/17 07:59 Polychromasia Not Reportable 03/10/17 07:59 Hypochromasia Not Reportable 03/10/17 07:59 Poikilocytosis Not Reportable 03/10/17 07:59 Anisocytosis 1+ 03/10/17 07:59 Microcytosis Not Reportable 03/10/17 07:59 Macrocytosis Not Reportable 03/10/17 07:59 Spherocytes Not Reportable 03/10/17 07:59 Pappenheimer Bodies Not Reportable 03/10/17 07:59 Sickle Cells Not Reportable 03/10/17 07:59 Target Cells Not Reportable 03/10/17 07:59 Tear Drop Cells Not Reportable 03/10/17 07:59 Ovalocytes Not Reportable 03/10/17 07:59 Helmet Cells Not Reportable 03/10/17 07:59 [place] Bodies Not Reportable 03/10/17 07:59 [place] Rings Not Reportable 03/10/17 07:59 [place] Cells Not Reportable 03/10/17 07:59 Bite Cells Not Reportable 03/10/17 07:59 Crenated Cell Not Reportable 03/10/17 07:59 Elliptocytes Not Reportable 03/10/17 07:59 Acanthocytes (Spur) Not Reportable 03/10/17 07:59 Rouleaux Not Reportable 03/10/17 07:59 Hemoglobin C Crystals Not Reportable 03/10/17 07:59 Schistocytes Not Reportable 03/10/17 07:59 Malaria parasites Not Reportable 03/10/17 07:59 Erich Bodies Not Reportable 03/10/17 07:59 Hem Pathologist Commnt No 03/10/17 07:59 PT 14.8 Sec. (12.2-14.9) 03/09/17 11:58 INR 1.10 (0.87-1.13) 03/09/17 11:58 VBG pH 7.384 (7.320-7.420) 03/09/17 11:58 Sodium 136 mmol/L (137-145) L 03/12/17 12:08 Potassium 3.8 mmol/L (3.6-5.0) 03/12/17 12:08 Chloride 102.5 mmol/L (98-107) 03/12/17 12:08 Carbon Dioxide 22 mmol/L (22-30) 03/12/17 12:08 Anion Gap 15 mmol/L 03/12/17 12:08 BUN 7 mg/dL (7-17) 03/12/17 12:08 Creatinine 0.4 mg/dL (0.7-1.2) L 03/12/17 12:08 Estimated GFR > 60 ml/min 03/12/17 12:08 BUN/Creatinine Ratio 18 % 03/12/17 12:08 Glucose 90 mg/dL (65-100) 03/12/17 12:08 Lactic Acid 2.20 mmol/L (0.7-2.0) H* 03/09/17 15:00 Calcium 8.5 mg/dL (8.4-10.2) 03/12/17 12:08 Total Bilirubin 0.20 mg/dL (0.1-1.2) 03/10/17 07:59 AST 14 units/L (5-40) 03/10/17 07:59 ALT < 5 units/L (7-56) L 03/10/17 07:59 Alkaline Phosphatase 70 units/L (35-129) 03/10/17 07:59 Lactate Dehydrogenase 144 units/L (91-180) 03/09/17 18:31 Total Protein 8.7 g/dL (6.3-8.2) H 03/10/17 07:59 Albumin 2.1 g/dL (3.9-5) L 03/10/17 07:59 Albumin/Globulin Ratio 0.3 % 03/10/17 07:59 Urine Color Yellow (Yellow) 03/09/17 14:54 Urine Turbidity Clear (Clear) 03/09/17 14:54 Urine pH 6.0 (5.0-7.0) 03/09/17 14:54 Ur Specific [place] 1.023 (1.003-1.030) 03/09/17 14:54 Urine Protein 100 mg/dl mg/dL (Negative) 03/09/17 14:54 Urine Glucose (UA) Neg mg/dL (Negative) 03/09/17 14:54 Urine Ketones Neg mg/dL (Negative) 03/09/17 14:54 Urine Blood Mod (Negative) 03/09/17 14:54 Urine Nitrite Neg (Negative) 03/09/17 14:54 Ur Reducing Substances Not Reportable 03/09/17 14:54 Urine Bilirubin Neg (Negative) 03/09/17 14:54 Urine Ictotest Not Reportable 03/09/17 14:54 Urine Urobilinogen 4.0 mg/dL (<2.0) 03/09/17 14:54 Ur Leukocyte Esterase Tr (Negative) 03/09/17 14:54 Urine WBC (Auto) 3.0 /HPF (0.0-6.0) 03/09/17 14:54 Urine RBC (Auto) 35.0 /HPF (0.0-6.0) 03/09/17 14:54 U Epithel Cells (Auto) 7.0 /HPF (0-13.0) 03/09/17 14:54 Urine Bacteria (Auto) 1+ /HPF (Negative) 03/09/17 14:54 Hyaline Casts 3 /LPF 03/09/17 14:54 Urine Mucus Few /HPF 03/09/17 14:54 Urine HCG, Qual Negative (Negative) 03/09/17 14:54
--- NOTE | 2017-03-12 15:16 | Progress Note ---
Assessment and Plan Assessment: 1) Sepsis: better, source pneumonia 2) RUL pneumonia: ? opportunistic TB, fungal, bacterial 3) Congenital HIV-off ART for 6 months 4) Nodular rash: ? HIV ?scabies Plan: -continue airborne and contact isolation until TB is ruled and scabies treated -f/u blood cx and sputum cx - pending -check AFB x 3 - pending -continue ceftriaxone and azithromycin -check HIV-viral load, CD4, genotype - pending -obtain records from [facility] -s/p permethrim for presumed scabies -continue bactrim DS 1 tab qday for PJP prevention Nida Hanson Subjective Date of service: 03/12/17 Principal diagnosis: sepsis Interval history: Feels better, no fever. Still coughing Current Antimicrobials: Azithromycin Ceftriaxone Previous Antimicrobials: Microbiology: Blood cultures: 03/09 ngtd Urine cultures: 03/09 ngtd Respiratory cultures: Objective - Exam Narrative Exam: Alert in NAD KATIE, clear OP Lung scattered rales CV RRR Abd soft non tender Ext no edema Skin extensive nodular rash Neuro alert and oriented x 3 - Constitutional Vitals: Vital Signs Temp Pulse Resp BP Pulse Ox 98.7 F 105 H 15 111/74 96 03/12/17 14:34 03/12/17 14:34 03/12/17 14:34 03/12/17 14:34 03/12/17 14:34 Temperature -Last 24 Hours Temperature 98.7 F Temperature 98.5 F Temperature 98.9 F Temperature 98.9 F Temperature 99.2 F Temperature 99.0 F Temperature 98.9 F - Labs CBC & Chem 7: 03/12/17 12:08 03/12/17 12:08 Labs: Abnormal lab results 03/12/17 03/12/17 Range/Units 12:08 12:08 Hgb 9.6 L (10.1-14.3) gm/dl MCV 70 L (79-97) fl MCH 22 L (28-32) pg RDW 20.5 H (13.2-15.2) % Sodium 136 L (137-145) mmol/L Creatinine 0.4 L (0.7-1.2) mg/dL
[2017-03-12] MEDS: BACTRIM DS PO SCH (17:07)
[2017-03-13] MEDS: HEPARIN SUB-Q SCH ×3 (06:26→21:48)
--- NOTE | 2017-03-13 09:09 | Progress Note ---
Assessment and Plan Assessment and plan: Right upper lobe pneumonia. Patient admitted to Med/Surg. Continue Rocephin and Zithromax. May be community acquired pneumonia. To rule out tuberculosis since patient has HIV positive. Obtain sputum AFB 3. Continue airborne isolation. ID Physician consulted. patient states she has given one specimen for AFB check. No fever since admitted HIV infection. Continue bactrim for PCP prophylaxis. Hypertension. BP stable. will monitor. Asthma. Albuterol prn. DVT prophylaxis. Heparin subcut. History Interval history: Shee presented with complain of fever, No more fever Cough with yellow sputum Gen weakness Hospitalist Physical - Physical exam Narrative exam: GEN APPEARANCE : Not in acute distress, HEENT: Normocephalic Atraumatic NECK : supple, no JVD LUNGS: Crackles right upper lung field, no wheeze HEART: S1 and S2 regular, no murmurs, rubs or gallop, ABD: Soft, no tenderness, no distension, normal bowel sounds EXT: No edema, no clubbing, no cyanosis NEURO: Awake,alert,oriented x 3. No focal signs Psych:Normal mood - Constitutional Vitals: Temp Pulse Resp BP Pulse Ox 98.7 F 88 16 117/74 97 03/13/17 07:55 03/13/17 07:55 03/13/17 07:55 03/13/17 07:55 03/13/17 07:55 Results - Labs CBC & Chem 7: 03/12/17 12:08 03/12/17 12:08 Labs: Laboratory Last Values WBC 6.9 K/mm3 (4.5-11.0) 03/12/17 12:08 RBC 4.32 M/mm3 (3.65-5.03) 03/12/17 12:08 Hgb 9.6 gm/dl (10.1-14.3) L 03/12/17 12:08 Hct 30.4 % (30.3-42.9) 03/12/17 12:08 MCV 70 fl (79-97) L 03/12/17 12:08 MCH 22 pg (28-32) L 03/12/17 12:08 MCHC 32 % (30-34) 03/12/17 12:08 RDW 20.5 % (13.2-15.2) H 03/12/17 12:08 Plt Count 330 K/mm3 (140-440) 03/12/17 12:08 Lymph % (Auto) 31.9 % (13.4-35.0) 03/09/17 11:58 [place] % (Auto) 11.7 % (0.0-7.3) H 03/09/17 11:58 Eos % (Auto) 2.8 % (0.0-4.3) 03/09/17 11:58 Baso % (Auto) Road Tester 03/10/17 07:59 Lymph # 4.1 K/mm3 (1.2-5.4) 03/09/17 11:58 [place] # 1.5 K/mm3 (0.0-0.8) H 03/09/17 11:58 Eos # 0.4 K/mm3 (0.0-0.4) 03/09/17 11:58 Baso # 0.1 K/mm3 (0.0-0.1) 03/09/17 11:58 Add Manual Diff Complete 03/10/17 07:59 Total Counted 100 03/10/17 07:59 Seg Neutrophils % 52.7 % (40.0-70.0) 03/09/17 11:58 Seg Neuts % (Manual) 49.0 % (40.0-70.0) 03/10/17 07:59 Band Neutrophils % 0 % 03/10/17 07:59 Lymphocytes % (Manual) 33.0 % (13.4-35.0) 03/10/17 07:59 Reactive Lymphs % (Man) 0 % 03/10/17 07:59 Monocytes % (Manual) 12.0 % (0.0-7.3) H 03/10/17 07:59 Eosinophils % (Manual) 6.0 % (0.0-4.3) H 03/10/17 07:59 Basophils % (Manual) 0 % (0.0-1.8) 03/10/17 07:59 Metamyelocytes % 0 % 03/10/17 07:59 Myelocytes % 0 % 03/10/17 07:59 Promyelocytes % 0 % 03/10/17 07:59 Blast Cells % 0 % 03/10/17 07:59 Nucleated RBC % Not Reportable 03/10/17 07:59 Seg Neutrophils # 6.7 K/mm3 (1.8-7.7) 03/09/17 11:58 Seg Neutrophils # Man 4.0 K/mm3 (1.8-7.7) 03/10/17 07:59 Band Neutrophils # 0.0 K/mm3 03/10/17 07:59 Lymphocytes # (Manual) 2.7 K/mm3 (1.2-5.4) 03/10/17 07:59 Abs React Lymphs (Man) 0.0 K/mm3 03/10/17 07:59 Monocytes # (Manual) 1.0 K/mm3 (0.0-0.8) H 03/10/17 07:59 Eosinophils # (Manual) 0.5 K/mm3 (0.0-0.4) H 03/10/17 07:59 Basophils # (Manual) 0.0 K/mm3 (0.0-0.1) 03/10/17 07:59 Metamyelocytes # 0.0 K/mm3 03/10/17 07:59 Myelocytes # 0.0 K/mm3 03/10/17 07:59 Promyelocytes # 0.0 K/mm3 03/10/17 07:59 Blast Cells # 0.0 K/mm3 03/10/17 07:59 WBC Morphology Not Reportable 03/10/17 07:59 Hypersegmented Neuts Not Reportable 03/10/17 07:59 Hyposegmented Neuts Not Reportable 03/10/17 07:59 Hypogranular Neuts Not Reportable 03/10/17 07:59 Smudge Cells Not Reportable 03/10/17 07:59 Toxic Granulation Not Reportable 03/10/17 07:59 Toxic Vacuolation Not Reportable 03/10/17 07:59 Dohle Bodies Not Reportable 03/10/17 07:59 Pelger-Huet Anomaly Not Reportable 03/10/17 07:59 Daija Rods Not Reportable 03/10/17 07:59 Platelet Estimate Consistent w auto 03/10/17 07:59 Clumped Platelets Not Reportable 03/10/17 07:59 Plt Clumps, EDTA Not Reportable 03/10/17 07:59 Large Platelets Not Reportable 03/10/17 07:59 Giant Platelets Not Reportable 03/10/17 07:59 Platelet Satelliting Not Reportable 03/10/17 07:59 Plt Morphology Comment Not Reportable 03/10/17 07:59 RBC Morphology Not Reportable 03/10/17 07:59 Dimorphic RBCs Not Reportable 03/10/17 07:59 Polychromasia Not Reportable 03/10/17 07:59 Hypochromasia Not Reportable 03/10/17 07:59 Poikilocytosis Not Reportable 03/10/17 07:59 Anisocytosis 1+ 03/10/17 07:59 Microcytosis Not Reportable 03/10/17 07:59 Macrocytosis Not Reportable 03/10/17 07:59 Spherocytes Not Reportable 03/10/17 07:59 Pappenheimer Bodies Not Reportable 03/10/17 07:59 Sickle Cells Not Reportable 03/10/17 07:59 Target Cells Not Reportable 03/10/17 07:59 Tear Drop Cells Not Reportable 03/10/17 07:59 Ovalocytes Not Reportable 03/10/17 07:59 Helmet Cells Not Reportable 03/10/17 07:59 Frank[place] Bodies Not Reportable 03/10/17 07:59 [place] Rings Not Reportable 03/10/17 07:59 [place] Cells Not Reportable 03/10/17 07:59 Bite Cells Not Reportable 03/10/17 07:59 Crenated Cell Not Reportable 03/10/17 07:59 Elliptocytes Not Reportable 03/10/17 07:59 Acanthocytes (Spur) Not Reportable 03/10/17 07:59 Rouleaux Not Reportable 03/10/17 07:59 Hemoglobin C Crystals Not Reportable 03/10/17 07:59 Schistocytes Not Reportable 03/10/17 07:59 Malaria parasites Not Reportable 03/10/17 07:59 Erich Bodies Not Reportable 03/10/17 07:59 Hem Pathologist Commnt No 03/10/17 07:59 PT 14.8 Sec. (12.2-14.9) 03/09/17 11:58 INR 1.10 (0.87-1.13) 03/09/17 11:58 VBG pH 7.384 (7.320-7.420) 03/09/17 11:58 Sodium 136 mmol/L (137-145) L 03/12/17 12:08 Potassium 3.8 mmol/L (3.6-5.0) 03/12/17 12:08 Chloride 102.5 mmol/L (98-107) 03/12/17 12:08 Carbon Dioxide 22 mmol/L (22-30) 03/12/17 12:08 Anion Gap 15 mmol/L 03/12/17 12:08 BUN 7 mg/dL (7-17) 03/12/17 12:08 Creatinine 0.4 mg/dL (0.7-1.2) L 03/12/17 12:08 Estimated GFR > 60 ml/min 03/12/17 12:08 BUN/Creatinine Ratio 18 % 03/12/17 12:08 Glucose 90 mg/dL (65-100) 03/12/17 12:08 Lactic Acid 2.20 mmol/L (0.7-2.0) H* 03/09/17 15:00 Calcium 8.5 mg/dL (8.4-10.2) 03/12/17 12:08 Total Bilirubin 0.20 mg/dL (0.1-1.2) 03/10/17 07:59 AST 14 units/L (5-40) 03/10/17 07:59 ALT < 5 units/L (7-56) L 03/10/17 07:59 Alkaline Phosphatase 70 units/L (35-129) 03/10/17 07:59 Lactate Dehydrogenase 144 units/L (91-180) 03/09/17 18:31 Total Protein 8.7 g/dL (6.3-8.2) H 03/10/17 07:59 Albumin 2.1 g/dL (3.9-5) L 03/10/17 07:59 Albumin/Globulin Ratio 0.3 % 03/10/17 07:59 Urine Color Yellow (Yellow) 03/09/17 14:54 Urine Turbidity Clear (Clear) 03/09/17 14:54 Urine pH 6.0 (5.0-7.0) 03/09/17 14:54 Ur Specific [place] 1.023 (1.003-1.030) 03/09/17 14:54 Urine Protein 100 mg/dl mg/dL (Negative) 03/09/17 14:54 Urine Glucose (UA) Neg mg/dL (Negative) 03/09/17 14:54 Urine Ketones Neg mg/dL (Negative) 03/09/17 14:54 Urine Blood Mod (Negative) 03/09/17 14:54 Urine Nitrite Neg (Negative) 03/09/17 14:54 Ur Reducing Substances Not Reportable 03/09/17 14:54 Urine Bilirubin Neg (Negative) 03/09/17 14:54 Urine Ictotest Not Reportable 03/09/17 14:54 Urine Urobilinogen 4.0 mg/dL (<2.0) 03/09/17 14:54 Ur Leukocyte Esterase Tr (Negative) 03/09/17 14:54 Urine WBC (Auto) 3.0 /HPF (0.0-6.0) 03/09/17 14:54 Urine RBC (Auto) 35.0 /HPF (0.0-6.0) 03/09/17 14:54 U Epithel Cells (Auto) 7.0 /HPF (0-13.0) 03/09/17 14:54 Urine Bacteria (Auto) 1+ /HPF (Negative) 03/09/17 14:54 Hyaline Casts 3 /LPF 03/09/17 14:54 Urine Mucus Few /HPF 03/09/17 14:54 Urine HCG, Qual Negative (Negative) 03/09/17 14:54
[2017-03-13] MEDS: PEPCID PO SCH ×2 (09:36→21:48)
[2017-03-13] MEDS: ZITHROMAX PO SCH (09:36)
[2017-03-13] MEDS: cefTRIAXone 2 GM in NACL 0.9% 20 ML IV SCH (09:42)
--- NOTE | 2017-03-13 11:57 | Progress Note ---
Assessment and Plan Assessment: 1) Sepsis: better, source pneumonia 2) RUL pneumonia: ? opportunistic TB, fungal, bacterial 3) Congenital HIV-off ART for 6 months 4) Nodular rash: ? HIV ? scabies Plan: -continue airborne and contact isolation until TB is ruled and scabies treated -f/u blood cx and sputum cx - pending -check AFB x 3 - pending -continue ceftriaxone and azithromycin - day 3 -check HIV-viral load, CD4, genotype - pending -s/p permethrim for presumed scabies, repeat in 14 days -continue bactrim DS 1 tab qday for PJP prevention Nida Hanson Subjective Date of service: 03/13/17 Principal diagnosis: sepsis Interval history: Feels better, no fever. Still coughing Current Antimicrobials: Azithromycin 03/11 Ceftriaxone 03/11 Previous Antimicrobials: Microbiology: Blood cultures: 03/09 ngtd Urine cultures: 03/09 ngtd Respiratory cultures: Objective - Exam Narrative Exam: Alert in NAD KATIE, clear OP Lung scattered rales CV RRR Abd soft non tender Ext no edema Skin extensive nodular rash Neuro alert and oriented x 3 - Constitutional Vitals: Vital Signs Temp Pulse Resp BP Pulse Ox 98.7 F 88 16 117/74 97 03/13/17 07:55 03/13/17 07:55 03/13/17 07:55 03/13/17 07:55 03/13/17 07:55 Temperature -Last 24 Hours Temperature 98.7 F Temperature 98.3 F Temperature 99.0 F Temperature 98.8 F Temperature 98.7 F Temperature 98.5 F - Labs CBC & Chem 7: 03/12/17 12:08 03/12/17 12:08 Labs: Abnormal lab results 03/12/17 03/12/17 Range/Units 12:08 12:08 Hgb 9.6 L (10.1-14.3) gm/dl MCV 70 L (79-97) fl MCH 22 L (28-32) pg RDW 20.5 H (13.2-15.2) % Sodium 136 L (137-145) mmol/L Creatinine 0.4 L (0.7-1.2) mg/dL
--- NOTE | 2017-03-13 15:30 | Query- Nutrition ---
Terrie Gonzalez___Indra Date:___03/13/2017 Electrical Engineering Drafting Officer/CDS:___Martha Phone#:___[phone] Exercise your independent professional judgment when responding to query. Questions asked do not imply a particular answer is desired or expected. We greatly appreciate your clarification on this issue. Clinical Documentation States: 22 Year old female was admitted on 03/09/2017 for cough and chills of 1 week duration. Clinical Findings Show: BMI: 25 Albumin: 2.3 Please select the most appropriate option 3 [] Mild Malnutrition [] Mild - Moderate Malnutrition [x] Moderate - Severe Malnutrition [] Severe Malnutrition Serum Albumin 2.8 to 3.4 g/dl or Pre-albumin 5 to 17 mg/dl1,2 Inadequate nutritional intake1,2,3,4 NPO > 5 days Weight loss: 5% in 1 month or 7.5% in 3 months or 10% in 6 months1, 3,4 BMI 16 to 18.4 or Weight <90% of ideal body weight1,2,3,4 Serum Albumin < 2.8 g/ dl1,2 Lymphocytes < 1500/ L2 Inadequate nutritional intake3, high stress e.g. major trauma, sepsis,pancreatitis, marquez etc. Decubitus ulcers1,2, , skin breakdown2, easy hair pluckability2 Weight <80% standard for height2 Triceps skin fold <3 mm2 Mid-arm muscle circumference <15 cm2 Creatinine-height index <60% standard2 [ ] Cachexia [ ] Emaciated w/Malnutrition [ ] Other: [ ] Unable to determine [ ] Comment/Explanation: Present on Admission: [x ] Yes (Y) [ ] Clinically undeterminable (W) [ ] No (N) Please also document response in your Progress Notes and/or Discharge Summary and indicate if the condition was present on admission. MTDD
--- NOTE | 2017-03-13 15:34 | Query- Pneumonia Documented ---
Deamariann Gonzalez___Indra Date:__03/13/2017 Children'S Lunchroom Supervisor/CDS:___Martha Phone#:_[phone] Exercise your independent professional judgment when responding to query. Questions asked do not imply a particular answer is desired or expected. We greatly appreciate your clarification on this issue. Clinical Documentation States: 22 Year old female was admitted on 03/09/2017 for cough and chills of 1 week duration. The Hospitalist (Dr. Burrell) progress note on 03/13/2017 states "Right upper lobe pneumonia. Patient admitted to Med/Surg. Continue Rocephin and Zithromax. "[place] 4d Please further specify known or suspected Etiology: [ ] Aspiration Pneumonia [ ] Gram Negative Pneumonia [ ] Gram Positive Pneumonia [ ] Pseudomonas Pneumonia [ ] MRSA - related Pneumonia [ ] Viral Pneumonia [ ] Candidal Pneumonia [ ] Other: [ ] Unable to determine Present on Admission: [ ] Yes (Y) [ ] Clinically undeterminable (W) [ ] No (N) Please also document response in your Progress Notes and/or Discharge Summary and indicate if the condition was present on admission. MTDD
[2017-03-13] MEDS: BACTRIM DS PO SCH (17:02)
[2017-03-13] MEDS: BENADRYL IV PRN (23:31)
[2017-03-14] MEDS: HEPARIN SUB-Q SCH ×3 (07:06→21:55)
--- NOTE | 2017-03-14 09:01 | Progress Note ---
Assessment and Plan Assessment and plan: Right upper lobe pneumonia. Patient admitted to Med/Surg. Continue Rocephin and Zithromax. May be community acquired pneumonia. To rule out tuberculosis since patient has HIV positive. Obtain sputum AFB 3. Continue airborne isolation. ID Physician following. Patient states today that she has given all 3 specimen for sputum AFB check. No more fever since admitted HIV infection. Continue bactrim for PCP prophylaxis. Hypertension. BP stable. Asthma. Albuterol prn. DVT prophylaxis. Heparin subcut. History Interval history: Shee presented with complain of fever, No more fever Still coughing Generalized weakness Hospitalist Physical - Physical exam Narrative exam: GEN APPEARANCE : Not in acute distress, HEENT: Normocephalic Atraumatic NECK : supple, no JVD LUNGS: Crackles right upper lung field, no wheeze HEART: S1 and S2 regular, no murmurs, rubs or gallop, ABD: Soft, no tenderness, no distension, normal bowel sounds EXT: No edema, no clubbing, no cyanosis NEURO: Awake,alert,oriented x 3. No focal signs Psych:Normal mood - Constitutional Vitals: Temp Pulse Resp BP Pulse Ox 98.6 F 93 H 14 100/63 96 03/14/17 08:28 03/14/17 08:28 03/14/17 08:28 03/14/17 08:28 03/14/17 08:28 Results - Labs CBC & Chem 7: 03/12/17 12:08 03/12/17 12:08 Labs: Laboratory Last Values WBC 6.9 K/mm3 (4.5-11.0) 03/12/17 12:08 RBC 4.32 M/mm3 (3.65-5.03) 03/12/17 12:08 Hgb 9.6 gm/dl (10.1-14.3) L 03/12/17 12:08 Hct 30.4 % (30.3-42.9) 03/12/17 12:08 MCV 70 fl (79-97) L 03/12/17 12:08 MCH 22 pg (28-32) L 03/12/17 12:08 MCHC 32 % (30-34) 03/12/17 12:08 RDW 20.5 % (13.2-15.2) H 03/12/17 12:08 Plt Count 330 K/mm3 (140-440) 03/12/17 12:08 Lymph % (Auto) 31.9 % (13.4-35.0) 03/09/17 11:58 [place] % (Auto) 11.7 % (0.0-7.3) H 03/09/17 11:58 Eos % (Auto) 2.8 % (0.0-4.3) 03/09/17 11:58 Baso % (Auto) Glue Bone Drier 03/10/17 07:59 Lymph # 4.1 K/mm3 (1.2-5.4) 03/09/17 11:58 [place] # 1.5 K/mm3 (0.0-0.8) H 03/09/17 11:58 Eos # 0.4 K/mm3 (0.0-0.4) 03/09/17 11:58 Baso # 0.1 K/mm3 (0.0-0.1) 03/09/17 11:58 Add Manual Diff Complete 03/10/17 07:59 Total Counted 100 03/10/17 07:59 Seg Neutrophils % 52.7 % (40.0-70.0) 03/09/17 11:58 Seg Neuts % (Manual) 49.0 % (40.0-70.0) 03/10/17 07:59 Band Neutrophils % 0 % 03/10/17 07:59 Lymphocytes % (Manual) 33.0 % (13.4-35.0) 03/10/17 07:59 Reactive Lymphs % (Man) 0 % 03/10/17 07:59 Monocytes % (Manual) 12.0 % (0.0-7.3) H 03/10/17 07:59 Eosinophils % (Manual) 6.0 % (0.0-4.3) H 03/10/17 07:59 Basophils % (Manual) 0 % (0.0-1.8) 03/10/17 07:59 Metamyelocytes % 0 % 03/10/17 07:59 Myelocytes % 0 % 03/10/17 07:59 Promyelocytes % 0 % 03/10/17 07:59 Blast Cells % 0 % 03/10/17 07:59 Nucleated RBC % Not Reportable 03/10/17 07:59 Seg Neutrophils # 6.7 K/mm3 (1.8-7.7) 03/09/17 11:58 Seg Neutrophils # Man 4.0 K/mm3 (1.8-7.7) 03/10/17 07:59 Band Neutrophils # 0.0 K/mm3 03/10/17 07:59 Lymphocytes # (Manual) 2.7 K/mm3 (1.2-5.4) 03/10/17 07:59 Abs React Lymphs (Man) 0.0 K/mm3 03/10/17 07:59 Monocytes # (Manual) 1.0 K/mm3 (0.0-0.8) H 03/10/17 07:59 Eosinophils # (Manual) 0.5 K/mm3 (0.0-0.4) H 03/10/17 07:59 Basophils # (Manual) 0.0 K/mm3 (0.0-0.1) 03/10/17 07:59 Metamyelocytes # 0.0 K/mm3 03/10/17 07:59 Myelocytes # 0.0 K/mm3 03/10/17 07:59 Promyelocytes # 0.0 K/mm3 03/10/17 07:59 Blast Cells # 0.0 K/mm3 03/10/17 07:59 WBC Morphology Not Reportable 03/10/17 07:59 Hypersegmented Neuts Not Reportable 03/10/17 07:59 Hyposegmented Neuts Not Reportable 03/10/17 07:59 Hypogranular Neuts Not Reportable 03/10/17 07:59 Smudge Cells Not Reportable 03/10/17 07:59 Toxic Granulation Not Reportable 03/10/17 07:59 Toxic Vacuolation Not Reportable 03/10/17 07:59 Dohle Bodies Not Reportable 03/10/17 07:59 Pelger-Huet Anomaly Not Reportable 03/10/17 07:59 Daija Rods Not Reportable 03/10/17 07:59 Platelet Estimate Consistent w auto 03/10/17 07:59 Clumped Platelets Not Reportable 03/10/17 07:59 Plt Clumps, EDTA Not Reportable 03/10/17 07:59 Large Platelets Not Reportable 03/10/17 07:59 Giant Platelets Not Reportable 03/10/17 07:59 Platelet Satelliting Not Reportable 03/10/17 07:59 Plt Morphology Comment Not Reportable 03/10/17 07:59 RBC Morphology Not Reportable 03/10/17 07:59 Dimorphic RBCs Not Reportable 03/10/17 07:59 Polychromasia Not Reportable 03/10/17 07:59 Hypochromasia Not Reportable 03/10/17 07:59 Poikilocytosis Not Reportable 03/10/17 07:59 Anisocytosis 1+ 03/10/17 07:59 Microcytosis Not Reportable 03/10/17 07:59 Macrocytosis Not Reportable 03/10/17 07:59 Spherocytes Not Reportable 03/10/17 07:59 Pappenheimer Bodies Not Reportable 03/10/17 07:59 Sickle Cells Not Reportable 03/10/17 07:59 Target Cells Not Reportable 03/10/17 07:59 Tear Drop Cells Not Reportable 03/10/17 07:59 Ovalocytes Not Reportable 03/10/17 07:59 Helmet Cells Not Reportable 03/10/17 07:59 Frankel-[place]af[place] Bodies Not Reportable 03/10/17 07:59 [place] Rings Not Reportable 03/10/17 07:59 [place] Cells Not Reportable 03/10/17 07:59 Bite Cells Not Reportable 03/10/17 07:59 Crenated Cell Not Reportable 03/10/17 07:59 Elliptocytes Not Reportable 03/10/17 07:59 Acanthocytes (Spur) Not Reportable 03/10/17 07:59 Rouleaux Not Reportable 03/10/17 07:59 Hemoglobin C Crystals Not Reportable 03/10/17 07:59 Schistocytes Not Reportable 03/10/17 07:59 Malaria parasites Not Reportable 03/10/17 07:59 Erich Bodies Not Reportable 03/10/17 07:59 Hem Pathologist Commnt No 03/10/17 07:59 PT 14.8 Sec. (12.2-14.9) 03/09/17 11:58 INR 1.10 (0.87-1.13) 03/09/17 11:58 VBG pH 7.384 (7.320-7.420) 03/09/17 11:58 Sodium 136 mmol/L (137-145) L 03/12/17 12:08 Potassium 3.8 mmol/L (3.6-5.0) 03/12/17 12:08 Chloride 102.5 mmol/L (98-107) 03/12/17 12:08 Carbon Dioxide 22 mmol/L (22-30) 03/12/17 12:08 Anion Gap 15 mmol/L 03/12/17 12:08 BUN 7 mg/dL (7-17) 03/12/17 12:08 Creatinine 0.4 mg/dL (0.7-1.2) L 03/12/17 12:08 Estimated GFR > 60 ml/min 03/12/17 12:08 BUN/Creatinine Ratio 18 % 03/12/17 12:08 Glucose 90 mg/dL (65-100) 03/12/17 12:08 Lactic Acid 2.20 mmol/L (0.7-2.0) H* 03/09/17 15:00 Calcium 8.5 mg/dL (8.4-10.2) 03/12/17 12:08 Total Bilirubin 0.20 mg/dL (0.1-1.2) 03/10/17 07:59 AST 14 units/L (5-40) 03/10/17 07:59 ALT < 5 units/L (7-56) L 03/10/17 07:59 Alkaline Phosphatase 70 units/L (35-129) 03/10/17 07:59 Lactate Dehydrogenase 144 units/L (91-180) 03/09/17 18:31 Total Protein 8.7 g/dL (6.3-8.2) H 03/10/17 07:59 Albumin 2.1 g/dL (3.9-5) L 03/10/17 07:59 Albumin/Globulin Ratio 0.3 % 03/10/17 07:59 Urine Color Yellow (Yellow) 03/09/17 14:54 Urine Turbidity Clear (Clear) 03/09/17 14:54 Urine pH 6.0 (5.0-7.0) 03/09/17 14:54 Ur Specific [place] 1.023 (1.003-1.030) 03/09/17 14:54 Urine Protein 100 mg/dl mg/dL (Negative) 03/09/17 14:54 Urine Glucose (UA) Neg mg/dL (Negative) 03/09/17 14:54 Urine Ketones Neg mg/dL (Negative) 03/09/17 14:54 Urine Blood Mod (Negative) 03/09/17 14:54 Urine Nitrite Neg (Negative) 03/09/17 14:54 Ur Reducing Substances Not Reportable 03/09/17 14:54 Urine Bilirubin Neg (Negative) 03/09/17 14:54 Urine Ictotest Not Reportable 03/09/17 14:54 Urine Urobilinogen 4.0 mg/dL (<2.0) 03/09/17 14:54 Ur Leukocyte Esterase Tr (Negative) 03/09/17 14:54 Urine WBC (Auto) 3.0 /HPF (0.0-6.0) 03/09/17 14:54 Urine RBC (Auto) 35.0 /HPF (0.0-6.0) 03/09/17 14:54 U Epithel Cells (Auto) 7.0 /HPF (0-13.0) 03/09/17 14:54 Urine Bacteria (Auto) 1+ /HPF (Negative) 03/09/17 14:54 Hyaline Casts 3 /LPF 03/09/17 14:54 Urine Mucus Few /HPF 03/09/17 14:54 Urine HCG, Qual Negative (Negative) 03/09/17 14:54
[2017-03-14] MEDS: ZITHROMAX PO SCH (13:40)
[2017-03-14] MEDS: cefTRIAXone 2 GM in NACL 0.9% 20 ML IV SCH (13:40)
[2017-03-14] MEDS: PEPCID PO SCH ×2 (13:40→21:55)
[2017-03-14] MEDS: BACTRIM DS PO SCH (18:38)
[2017-03-14] MEDS: BENADRYL IV PRN (22:07)
[2017-03-15] MEDS: HEPARIN SUB-Q SCH ×3 (07:04→22:31)
--- NOTE | 2017-03-15 10:30 | Progress Note ---
Assessment and Plan Assessment and plan: Right upper lobe pneumonia. Patient admitted to Med/Surg. Continue Rocephin and Zithromax. May be community acquired pneumonia. To rule out tuberculosis since patient is HIV positive. Obtain sputum AFB 3. Continue airborne isolation until TB ruled out. ID Physician following. Patient states that she has given all 3 specimen for sputum AFB check. No more fever since admitted HIV infection. Continue Bactrim for PCP prophylaxis. Scabies. Permethrin ordered. Hypertension. BP stable. Asthma. Albuterol prn. DVT prophylaxis. Heparin subcut. History Interval history: She presented with complain of fever, No more fever Still coughing skin rash Generalized weakness Hospitalist Physical - Physical exam Narrative exam: GEN APPEARANCE : Not in acute distress, HEENT: Normocephalic Atraumatic NECK : supple, no JVD LUNGS: Crackles right upper lung field, no wheeze HEART: S1 and S2 regular, no murmurs, rubs or gallop, ABD: Soft, no tenderness, no distension, normal bowel sounds EXT: No edema, no clubbing, no cyanosis NEURO: Awake,alert,oriented x 3. No focal signs Psych:Normal mood - Constitutional Vitals: Temp Pulse Resp BP Pulse Ox 98.7 F 98 H 20 117/75 98 03/15/17 08:21 03/15/17 08:21 03/15/17 08:21 03/15/17 08:21 03/15/17 08:21 Results - Labs CBC & Chem 7: 03/12/17 12:08 03/12/17 12:08 Labs: Laboratory Last Values WBC 6.9 K/mm3 (4.5-11.0) 03/12/17 12:08 RBC 4.32 M/mm3 (3.65-5.03) 03/12/17 12:08 Hgb 9.6 gm/dl (10.1-14.3) L 03/12/17 12:08 Hct 30.4 % (30.3-42.9) 03/12/17 12:08 MCV 70 fl (79-97) L 03/12/17 12:08 MCH 22 pg (28-32) L 03/12/17 12:08 MCHC 32 % (30-34) 03/12/17 12:08 RDW 20.5 % (13.2-15.2) H 03/12/17 12:08 Plt Count 330 K/mm3 (140-440) 03/12/17 12:08 Lymph % (Auto) 31.9 % (13.4-35.0) 03/09/17 11:58 [place] % (Auto) 11.7 % (0.0-7.3) H 03/09/17 11:58 Eos % (Auto) 2.8 % (0.0-4.3) 03/09/17 11:58 Baso % (Auto) Business Development Director 03/10/17 07:59 Lymph # 4.1 K/mm3 (1.2-5.4) 03/09/17 11:58 [place] # 1.5 K/mm3 (0.0-0.8) H 03/09/17 11:58 Eos # 0.4 K/mm3 (0.0-0.4) 03/09/17 11:58 Baso # 0.1 K/mm3 (0.0-0.1) 03/09/17 11:58 Add Manual Diff Complete 03/10/17 07:59 Total Counted 100 03/10/17 07:59 Seg Neutrophils % 52.7 % (40.0-70.0) 03/09/17 11:58 Seg Neuts % (Manual) 49.0 % (40.0-70.0) 03/10/17 07:59 Band Neutrophils % 0 % 03/10/17 07:59 Lymphocytes % (Manual) 33.0 % (13.4-35.0) 03/10/17 07:59 Reactive Lymphs % (Man) 0 % 03/10/17 07:59 Monocytes % (Manual) 12.0 % (0.0-7.3) H 03/10/17 07:59 Eosinophils % (Manual) 6.0 % (0.0-4.3) H 03/10/17 07:59 Basophils % (Manual) 0 % (0.0-1.8) 03/10/17 07:59 Metamyelocytes % 0 % 03/10/17 07:59 Myelocytes % 0 % 03/10/17 07:59 Promyelocytes % 0 % 03/10/17 07:59 Blast Cells % 0 % 03/10/17 07:59 Nucleated RBC % Not Reportable 03/10/17 07:59 Seg Neutrophils # 6.7 K/mm3 (1.8-7.7) 03/09/17 11:58 Seg Neutrophils # Man 4.0 K/mm3 (1.8-7.7) 03/10/17 07:59 Band Neutrophils # 0.0 K/mm3 03/10/17 07:59 Lymphocytes # (Manual) 2.7 K/mm3 (1.2-5.4) 03/10/17 07:59 Abs React Lymphs (Man) 0.0 K/mm3 03/10/17 07:59 Monocytes # (Manual) 1.0 K/mm3 (0.0-0.8) H 03/10/17 07:59 Eosinophils # (Manual) 0.5 K/mm3 (0.0-0.4) H 03/10/17 07:59 Basophils # (Manual) 0.0 K/mm3 (0.0-0.1) 03/10/17 07:59 Metamyelocytes # 0.0 K/mm3 03/10/17 07:59 Myelocytes # 0.0 K/mm3 03/10/17 07:59 Promyelocytes # 0.0 K/mm3 03/10/17 07:59 Blast Cells # 0.0 K/mm3 03/10/17 07:59 WBC Morphology Not Reportable 03/10/17 07:59 Hypersegmented Neuts Not Reportable 03/10/17 07:59 Hyposegmented Neuts Not Reportable 03/10/17 07:59 Hypogranular Neuts Not Reportable 03/10/17 07:59 Smudge Cells Not Reportable 03/10/17 07:59 Toxic Granulation Not Reportable 03/10/17 07:59 Toxic Vacuolation Not Reportable 03/10/17 07:59 Dohle Bodies Not Reportable 03/10/17 07:59 Pelger-Huet Anomaly Not Reportable 03/10/17 07:59 Daija Rods Not Reportable 03/10/17 07:59 Platelet Estimate Consistent w auto 03/10/17 07:59 Clumped Platelets Not Reportable 03/10/17 07:59 Plt Clumps, EDTA Not Reportable 03/10/17 07:59 Large Platelets Not Reportable 03/10/17 07:59 Giant Platelets Not Reportable 03/10/17 07:59 Platelet Satelliting Not Reportable 03/10/17 07:59 Plt Morphology Comment Not Reportable 03/10/17 07:59 RBC Morphology Not Reportable 03/10/17 07:59 Dimorphic RBCs Not Reportable 03/10/17 07:59 Polychromasia Not Reportable 03/10/17 07:59 Hypochromasia Not Reportable 03/10/17 07:59 Poikilocytosis Not Reportable 03/10/17 07:59 Anisocytosis 1+ 03/10/17 07:59 Microcytosis Not Reportable 03/10/17 07:59 Macrocytosis Not Reportable 03/10/17 07:59 Spherocytes Not Reportable 03/10/17 07:59 Pappenheimer Bodies Not Reportable 03/10/17 07:59 Sickle Cells Not Reportable 03/10/17 07:59 Target Cells Not Reportable 03/10/17 07:59 Tear Drop Cells Not Reportable 03/10/17 07:59 Ovalocytes Not Reportable 03/10/17 07:59 Helmet Cells Not Reportable 03/10/17 07:59 Frankel-Price Bodies Not Reportable 03/10/17 07:59 [place] Rings Not Reportable 03/10/17 07:59 [place] Cells Not Reportable 03/10/17 07:59 Bite Cells Not Reportable 03/10/17 07:59 Crenated Cell Not Reportable 03/10/17 07:59 Elliptocytes Not Reportable 03/10/17 07:59 Acanthocytes (Spur) Not Reportable 03/10/17 07:59 Rouleaux Not Reportable 03/10/17 07:59 Hemoglobin C Crystals Not Reportable 03/10/17 07:59 Schistocytes Not Reportable 03/10/17 07:59 Malaria parasites Not Reportable 03/10/17 07:59 Erich Bodies Not Reportable 03/10/17 07:59 Hem Pathologist Commnt No 03/10/17 07:59 PT 14.8 Sec. (12.2-14.9) 03/09/17 11:58 INR 1.10 (0.87-1.13) 03/09/17 11:58 VBG pH 7.384 (7.320-7.420) 03/09/17 11:58 Sodium 136 mmol/L (137-145) L 03/12/17 12:08 Potassium 3.8 mmol/L (3.6-5.0) 03/12/17 12:08 Chloride 102.5 mmol/L (98-107) 03/12/17 12:08 Carbon Dioxide 22 mmol/L (22-30) 03/12/17 12:08 Anion Gap 15 mmol/L 03/12/17 12:08 BUN 7 mg/dL (7-17) 03/12/17 12:08 Creatinine 0.4 mg/dL (0.7-1.2) L 03/12/17 12:08 Estimated GFR > 60 ml/min 03/12/17 12:08 BUN/Creatinine Ratio 18 % 03/12/17 12:08 Glucose 90 mg/dL (65-100) 03/12/17 12:08 Lactic Acid 2.20 mmol/L (0.7-2.0) H* 03/09/17 15:00 Calcium 8.5 mg/dL (8.4-10.2) 03/12/17 12:08 Total Bilirubin 0.20 mg/dL (0.1-1.2) 03/10/17 07:59 AST 14 units/L (5-40) 03/10/17 07:59 ALT < 5 units/L (7-56) L 03/10/17 07:59 Alkaline Phosphatase 70 units/L (35-129) 03/10/17 07:59 Lactate Dehydrogenase 144 units/L (91-180) 03/09/17 18:31 Total Protein 8.7 g/dL (6.3-8.2) H 03/10/17 07:59 Albumin 2.1 g/dL (3.9-5) L 03/10/17 07:59 Albumin/Globulin Ratio 0.3 % 03/10/17 07:59 Urine Color Yellow (Yellow) 03/09/17 14:54 Urine Turbidity Clear (Clear) 03/09/17 14:54 Urine pH 6.0 (5.0-7.0) 03/09/17 14:54 Ur Specific [place] 1.023 (1.003-1.030) 03/09/17 14:54 Urine Protein 100 mg/dl mg/dL (Negative) 03/09/17 14:54 Urine Glucose (UA) Neg mg/dL (Negative) 03/09/17 14:54 Urine Ketones Neg mg/dL (Negative) 03/09/17 14:54 Urine Blood Mod (Negative) 03/09/17 14:54 Urine Nitrite Neg (Negative) 03/09/17 14:54 Ur Reducing Substances Not Reportable 03/09/17 14:54 Urine Bilirubin Neg (Negative) 03/09/17 14:54 Urine Ictotest Not Reportable 03/09/17 14:54 Urine Urobilinogen 4.0 mg/dL (<2.0) 03/09/17 14:54 Ur Leukocyte Esterase Tr (Negative) 03/09/17 14:54 Urine WBC (Auto) 3.0 /HPF (0.0-6.0) 03/09/17 14:54 Urine RBC (Auto) 35.0 /HPF (0.0-6.0) 03/09/17 14:54 U Epithel Cells (Auto) 7.0 /HPF (0-13.0) 03/09/17 14:54 Urine Bacteria (Auto) 1+ /HPF (Negative) 03/09/17 14:54 Hyaline Casts 3 /LPF 03/09/17 14:54 Urine Mucus Few /HPF 03/09/17 14:54 Urine HCG, Qual Negative (Negative) 03/09/17 14:54
[2017-03-15] MEDS: ZITHROMAX PO SCH (10:43)
[2017-03-15] MEDS: PEPCID PO SCH ×2 (10:44→22:30)
[2017-03-15] MEDS: cefTRIAXone 2 GM in NACL 0.9% 20 ML IV SCH (10:44)
--- NOTE | 2017-03-15 12:29 | Progress Note ---
Assessment and Plan Assessment: 1) Sepsis: better, source pneumonia 2) RUL pneumonia: ? opportunistic TB, fungal, bacterial 3) Congenital HIV-off ART for 6 months 4) Nodular rash: ? HIV ? scabies Plan: -continue airborne and contact isolation until TB is ruled and scabies treated -f/u blood cx and sputum cx - pending -check AFB x 3 - pending -continue ceftriaxone and azithromycin - day 5 of 7 -check HIV-viral load, CD4, genotype - pending -s/p permethrim for presumed scabies, repeat in 14 days -continue bactrim DS 1 tab qday for PJP prevention Nida Hanson Subjective Date of service: 03/15/17 Principal diagnosis: sepsis Interval history: Feels better, no fever. Itching is jennifer, cough is minimal. Current Antimicrobials: Azithromycin 03/11 Ceftriaxone 03/11 Previous Antimicrobials: Microbiology: Blood cultures: 03/09 ngtd Urine cultures: 03/09 ngtd Respiratory cultures: Objective - Exam Narrative Exam: Alert in NAD KATIE, clear OP Lung scattered rales CV RRR Abd soft non tender Ext no edema Skin extensive nodular rash - better Neuro alert and oriented x 3 - Constitutional Vitals: Vital Signs Temp Pulse Resp BP Pulse Ox 98.7 F 98 H 20 117/75 98 03/15/17 08:21 03/15/17 08:21 03/15/17 08:21 03/15/17 08:21 03/15/17 08:21 Temperature -Last 24 Hours Temperature 98.7 F Temperature 98.3 F Temperature 98.6 F - Labs CBC & Chem 7: 03/12/17 12:08 03/12/17 12:08
[2017-03-15] MEDS: BACTRIM DS PO SCH (18:43)
[2017-03-15] MEDS: BENADRYL IV PRN (22:31)
[2017-03-16] MEDS: HEPARIN SUB-Q SCH ×3 (06:07→21:57)
[2017-03-16 07:11] LABS: Hematocrit 29.6 % (30.3-42.9); Hemoglobin 9.3 gm/dl (10.1-14.3); Mean Corpuscular HGB Conc 32 % (30-34); Platelet Count 323 K/mm3 (140-440); Red Blood Count 4.24 M/mm3 (3.65-5.03); White Blood Count 7.1 K/mm3 (4.5-11.0)
[2017-03-16 07:21] LABS: Mean Corpuscular Hemoglobin 22 pg (28-32); Mean Corpuscular Volume 70 fl (79-97); Red Cell Distribution Width 20.3 % (13.2-15.2)
[2017-03-16 07:23] LABS: Anion Gap 16 mmol/L; BUN/Creatinine Ratio 16; Blood Urea Nitrogen 8 mg/dL (7-17); Calcium 8.4 mg/dL (8.4-10.2); Carbon Dioxide 20 mmol/L (22-30); Chloride 101.6 mmol/L (98-107); Glucose 84 mg/dL (65-100); Sodium 134 mmol/L (137-145)
[2017-03-16] MEDS: cefTRIAXone 2 GM in NACL 0.9% 20 ML IV SCH (09:18)
[2017-03-16] MEDS: PEPCID PO SCH ×2 (09:19→22:00)
[2017-03-16] MEDS: ZITHROMAX PO SCH (09:19)
--- NOTE | 2017-03-16 11:54 | Progress Note ---
Assessment and Plan Assessment: 1) Sepsis: better, source pneumonia 2) RUL pneumonia: ? opportunistic TB, fungal, bacterial. AFB x 1 neg 3) Congenital HIV-off ART for 6 months 4) Nodular rash: ? HIV ? scabies s/p permethrim for presumed scabies, repeat in 14 days Plan: -continue airborne and contact isolation until TB is ruled and scabies treated -f/u AFB x 2 - pending -continue ceftriaxone and azithromycin - day 6 of 7 -check HIV-viral load, CD4, genotype - pending -continue bactrim DS 1 tab qday for PJP prevention Nidarobby Hanson Subjective Date of service: 03/16/17 Principal diagnosis: sepsis Interval history: Feels better, no fever. Itching is better, cough is minimal. Current Antimicrobials: Azithromycin 03/11 Ceftriaxone 03/11 Previous Antimicrobials: Microbiology: Blood cultures: 03/09 ngtd Urine cultures: 03/09 ngtd Respiratory cultures: Objective - Exam Narrative Exam: Alert in NAD KATIE, clear OP Lung scattered rales CV RRR Abd soft non tender Ext no edema Skin extensive nodular rash - better Neuro alert and oriented x 3 - Constitutional Vitals: Vital Signs Temp Pulse Resp BP Pulse Ox 98.9 F 103 H 20 119/79 97 03/16/17 08:53 03/16/17 08:53 03/16/17 08:53 03/16/17 08:53 03/16/17 08:53 Temperature -Last 24 Hours Temperature 98.9 F Temperature 98.7 F Temperature 99.0 F - Labs CBC & Chem 7: 03/16/17 06:53 03/16/17 06:53 Labs: Abnormal lab results 03/16/17 03/16/17 Range/Units 06:53 06:53 Hgb 9.3 L (10.1-14.3) gm/dl Hct 29.6 L (30.3-42.9) % MCV 70 L (79-97) fl MCH 22 L (28-32) pg RDW 20.3 H (13.2-15.2) % Sodium 134 L (137-145) mmol/L Carbon Dioxide 20 L (22-30) mmol/L Creatinine 0.5 L (0.7-1.2) mg/dL
[2017-03-16] MEDS: BENADRYL IV PRN ×2 (13:07→21:59)
--- NOTE | 2017-03-16 16:11 | Progress Note ---
Assessment and Plan Right upper lobe pneumonia. - Patient admitted to Med/Surg. Continue Rocephin and Zithromax. May be community acquired pneumonia. To rule out tuberculosis since patient is HIV positive. Obtain sputum AFB 3. Continue airborne isolation until TB ruled out. ID Physician following. Patient states that she has given all 3 specimen for sputum AFB check. No more fever since admitted HIV infection. - Continue Bactrim for PCP prophylaxis. Scabies. Permethrin ordered. Hypertension. BP stable. Asthma. Albuterol prn. DVT prophylaxis. Heparin subcut. Brief history: 22 years old female with history of HTN, asthma and congenital HIV off ART for 6 months. She moved from [facility] to [place], [place] and she has not established HIV care. Admitted on due to 2-week history of productive cough/yellow sputum associated with progressive SOB, generalized malaise and subjective fever. She is also c/o generalized pruritic rash allover her body. In the ED, temp 99.3, HR 108, R 22, BP 150/78, WBC 12.7, hg 8.5, plat 354, creat 0.3, lactate 2.2. UA neg. CXR showed RUL consolidation on chronic reactive airways. Radiological data: Chest x-ray Hospitalist Physical exam: GEN APPEARANCE : Not in acute distress, HEENT: Normocephalic Atraumatic NECK : supple, no JVD LUNGS: Crackles right upper lung field, no wheeze HEART: S1 and S2 regular, no murmurs, rubs or gallop, ABD: Soft, no tenderness, no distension, normal bowel sounds EXT: No edema, no clubbing, no cyanosis NEURO: Awake,alert,oriented x 3. No focal signs Psych:Normal mood Subjective Date of service: 03/16/17 Principal diagnosis: sepsis Interval history: Patient seen and examined. Medical records and medication list reviewed. No acute event overnight noted by the RN. Patient denies any chest pain or difficulty breathing. Patient is tolerating diet. Discussed plan of care at bedside with patient. Objective - Constitutional Vitals: Vital Signs - 12hr 03/16/17 08:53 Temperature 98.9 F Pulse Rate 103 H Respiratory 20 Rate Blood Pressure 119/79 O2 Sat by Pulse 97 Oximetry - Labs CBC & Chem 7: 03/16/17 06:53 12/07/17 06:53 Labs: Abnormal lab results 12/07/17 12/07/17 Range/Units 06:53 06:53 Hgb 9.3 L (10.1-14.3) gm/dl Hct 29.6 L (30.3-42.9) % MCV 70 L (79-97) fl MCH 22 L (28-32) pg RDW 20.3 H (13.2-15.2) % Sodium 134 L (137-145) mmol/L Carbon Dioxide 20 L (22-30) mmol/L Creatinine 0.5 L (0.7-1.2) mg/dL
[2017-03-16] MEDS: BACTRIM DS PO SCH (17:37)
[2017-03-17] MEDS: HEPARIN SUB-Q SCH ×2 (05:59→13:48)
[2017-03-17] MEDS: ZITHROMAX PO SCH (09:45)
[2017-03-17] MEDS: cefTRIAXone 2 GM in NACL 0.9% 20 ML IV SCH (09:45)
[2017-03-17] MEDS: PEPCID PO SCH (09:45)
--- NOTE | 2017-03-17 10:42 | Progress Note ---
Assessment and Plan Assessment: 1) Sepsis: better, source pneumonia 2) RUL pneumonia: Quantiferon TB gold and AFB x 3 negative 3) Congenital HIV-off ART for 6 months 4) Nodular rash: ? HIV ? scabies s/p permethrim for presumed scabies, repeat in 14 days Plan: -stop airborne and contact isolation -stop ceftriaxone and azithromycin - day 7 of 7 -check HIV-viral load, CD4, genotype - pending -continue bactrim DS 1 tab qday for PJP prevention- give a month rx -F/U with HIV clinic in 1 week I am signing off Nida Hanson Subjective Date of service: 03/17/17 Principal diagnosis: sepsis Interval history: Feels better, no fever. Itching is better, cough is minimal. Current Antimicrobials: Azithromycin 03/11 Ceftriaxone 03/11 Previous Antimicrobials: Microbiology: Blood cultures: 03/09 ngtd Urine cultures: 03/09 ngtd Respiratory cultures: Objective - Exam Narrative Exam: Alert in NAD KATIE, clear OP Lung scattered rales CV RRR Abd soft non tender Ext no edema Skin extensive nodular rash - better Neuro alert and oriented x 3 - Constitutional Vitals: Vital Signs Temp Pulse Resp BP Pulse Ox 98.5 F 98 H 18 115/74 97 03/17/17 08:05 03/17/17 08:05 03/17/17 08:05 03/17/17 08:05 03/17/17 08:05 Temperature -Last 24 Hours Temperature 98.5 F Temperature 98.8 F Temperature 99.0 F Temperature 99.0 F - Labs CBC & Chem 7: 03/16/17 06:53 03/16/17 06:53
--- NOTE | 2017-03-17 10:45 | Discharge Summary ---
Providers - Providers Date of Admission: 03/09/17 18:30 Date of discharge: 03/17/17 Attending physician: JENNIFER CALIXTO 03/09/17 22:06 Consult to Physician [CONS] Routine Consulting Provider: CHRISTINE RAMEY Reason For Exam: HIV + RUL Pneumonia Place consult to:: dr. florez Notified:: Phone number called:: [phone] Was contact made?: Yes If yes, spoke with:: dr. florez Time called:: 08:56 Primary care physician: DIRECT MARKETING REPRESENTATIVE Hospitalization Condition: Good Hospital course: Brief history: 22 years old female with history of HTN, asthma and congenital HIV off ART for 6 months. She moved from [facility] to [place], [place] and she has not established HIV care. Admitted on due to 2-week history of productive cough/yellow sputum associated with progressive SOB, generalized malaise and subjective fever. She was also c/o generalized pruritic rash allover her body. In the ED, temp 99.3, HR 108, R 22, BP 150/78, WBC 12.7, hg 8.5, plat 354, creat 0.3, lactate 2.2. UA neg. CXR showed RUL consolidation on chronic reactive airways. She was admitted for PNA and for possible TB. Discharge Diagnosis and management: Right upper lobe pneumonia. - Patient admitted to Med/Surg. completed Rocephin and Zithromax for 7 days. May be community acquired pneumonia. Test ordered for possible tuberculosis since patient is HIV positive. Obtain sputum AFB 3. Continued on airborne isolation until TB ruled out. ID Physician was following. No more fever since admitted. Quantiferron assay was negative for TB. HIV infection. -check HIV-viral load, CD4, genotype - pending -continue bactrim DS 1 tab qday for PJP prevention following discharge Scabies. Permethrin ordered and treated Hypertension. BP stable. Asthma. Albuterol prn. DVT prophylaxis. Heparin subcut. Radiological data: Chest x-ray - right Upper lobe consolidation Hospitalist Physical exam: GEN APPEARANCE : Not in acute distress, HEENT: Normocephalic Atraumatic NECK : supple, no JVD LUNGS: Crackles right upper lung field, no wheeze HEART: S1 and S2 regular, no murmurs, rubs or gallop, ABD: Soft, no tenderness, no distension, normal bowel sounds EXT: No edema, no clubbing, no cyanosis NEURO: Awake,alert,oriented x 3. No focal signs Psych:Normal mood Disposition: DC-01 TO HOME OR SELFCARE Time spent for discharge: 32 minutes Core Measure Documentation - Palliative Care Palliative Care/ Comfort Measures: Not Applicable - Core Measures Any of the following diagnoses?: none Exam - Constitutional Vitals: Temp Pulse Resp BP Pulse Ox 98.5 F 98 H 18 115/74 97 03/17/17 08:05 03/17/17 08:05 03/17/17 08:05 03/17/17 08:05 03/17/17 08:05 Plan Activity: advance as tolerated Weight Bearing Status: Weight Bear as Tolerated Diet: regular Follow up with: PRIMARY CARE, [Primary Care Provider] - 3-5 Days Prescriptions: Sulfamethoxazole/Trimethoprim [Bactrim DS TAB] 1 each PO Q24H #90 tablet
[2017-03-17] MEDS ORDERED: Fluarix Quad 2017-2018(36 MOS+ IM ONE (13:30)
[2017-03-17] MEDS: BACTRIM DS PO SCH (16:24)
[2017-03-17 16:45] VITALS: BP 135/81
== END 2017-03-17 16:45 | disposition home or self-care (01) | DRG 974 ==
LOC: ED 11:38 → 3A 18:30
PROVIDERS: ADMIT Internal Medicine; ATTEND Internal Medicine
PROC: 3E0234Z Introduction of Serum, Toxoid and Vaccine into Muscle, Percutaneous Approach (ICD-10-PCS; principal; 2017-03-17)
DX: A41.9 Sepsis, unspecified organism (principal); E43 Unspecified severe protein-calorie malnutrition; B20 Human immunodeficiency virus [HIV] disease; J18.1 Lobar pneumonia, unspecified organism; I10 Essential (primary) hypertension; J45.909 Unspecified asthma, uncomplicated; B86 Scabies; Z23 Encounter for immunization; Z68.23 Body mass index [BMI] 23.0-23.9, adult
CPT/HCPCS: 36415; 71020; 80048; 80053; 81001; 81025; 82024; 82140; 82164; 82805; 83615; 85007; 85025; 85027; 85610; 87040; 87086; 87536; 87901; 90686; 93005; 93010; J0456; J0696; J1200; J1644; J7030; J7042; J7050

== ENCOUNTER 2018-11-13 16:35 | Inpatient (IN) | payer MEDICAID, OTHER ==
--- NOTE | 2018-11-13 17:33 | Event Note ---
ED Screening Note Date of service: 11/13/18 Time: 17:27 ED Screening Note: 23 y/o female comes in for 2 day history of pain left side, Nausea. No dysuria. SOB and cough not on BC. Recently travel on a plane in the last 2 weeks. Some chest pain. 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 History of HIV not sure if she is taking her medications. This initial assessment/diagnostic orders/clinical plan/treatment(s) is/are subject to change based on patients health status, clinical progression and re- assessment by fellow clinical providers in the ED. Further treatment and workup at subsequent clinical providers discretion. Patient/guardian urged not to elope from the ED as their condition may be serious if not clinically assessed and managed. Initial orders include:
[2018-11-13 18:11] LABS: Hemoglobin 10.1 gm/dl (10.1-14.3); Mean Corpuscular HGB Conc 31 % (30-34); Mean Corpuscular Volume 72 fl (79-97); Platelet Count 252 K/mm3 (140-440); Red Blood Count 4.61 M/mm3 (3.65-5.03)
[2018-11-13 18:13] LABS: Red Cell Distribution Width 21.3 % (13.2-15.2)
[2018-11-13 18:33] LABS: Alanine Aminotransferase 53 units/L (7-56); Albumin 2.6 g/dL (3.9-5); BUN/Creatinine Ratio 15; Blood Urea Nitrogen 19 mg/dL (7-17); Calcium 8.2 mg/dL (8.4-10.2); Hemolysis Index 1
[2018-11-13] MEDS ORDERED: NACL 0.9% 1000 ML 1,000 ML IV ONE (19:01)
[2018-11-13] MEDS ORDERED: NACL 0.9% 1000 ML IV ONE (19:02)
[2018-11-13 19:18] LABS: Basophils % (Manual) 0 % (0.0-1.8); Eosinophils % (Manual) 0 % (0.0-4.3); Total Cells Counted 100
[2018-11-13 19:19] LABS: Hypochromasia 2+; Large Platelets 1+
[2018-11-13 19:20] LABS: Anisocytosis 1+; Platelet Estimate Consistent w Auto; Poikilocytosis 1+
[2018-11-13] MEDS ORDERED: VANCOMYCIN 1,500 MG in NACL 0.9% 500 ML 500 ML IV ONE (20:00)
[2018-11-13] MEDS ORDERED: VANCOMYCIN PHARMACY TO DOSE IV SCH (20:00)
[2018-11-13] MEDS ORDERED: IBUPROFEN PO ONE (20:04)
--- NOTE | 2018-11-13 20:05 | Emergency Department Report ---
ED Fever HPI - General Chief Complaint: Dyspnea/Respdistress Stated Complaint: SOB/CHEST/RIB PAIN Time Seen by Provider: 11/13/18 17:27 - History of Present Illness Initial Comments: Krupa is a 23 yo female with hx of congenital HIV, asthma HTN who presents with fever, left chest pain, nausea, dyspnea, cough. Recently flew from [place]. Has not been taking ART because she is "too busy". Timing/Duration: other (2 days) Fever Severity/Quality: greater than 102 F Associated Symptoms: chest pain, cough, shortness of breath ED Review of Systems ROS: Stated complaint: SOB/CHEST/RIB PAIN Other details as noted in HPI Comment: All other systems reviewed and negative Respiratory: cough, shortness of breath Cardiovascular: chest pain ED Past Medical Hx - Past Medical History Previous Medical History?: Yes Hx Hypertension: Yes Hx Diabetes: No Hx Asthma: Yes Hx HIV: Yes - Surgical History Past Surgical History?: No Additional Surgical History: Left ear surgery - Social History Smoking Status: Never Smoker Substance Use Type: None - Medications Home Medications: Home Medications Medication Instructions Recorded Confirmed Last Taken Type Sulfamethoxazole/Trimethoprim 1 each PO Q24H #90 tablet 03/17/17 Unknown Rx [Bactrim DS TAB] ED Physical Exam - General Limitations: No Limitations General appearance: alert, in no apparent distress - Head Head exam: Present: atraumatic, normocephalic - Eye Eye exam: Present: normal appearance - ENT ENT exam: Present: mucous membranes moist - Neck Neck exam: Present: normal inspection, full ROM - Respiratory Respiratory exam: Present: normal lung sounds bilaterally. Absent: respiratory distress, wheezes - Cardiovascular Cardiovascular Exam: Present: normal rhythm, tachycardia, normal heart sounds. Absent: systolic murmur, diastolic murmur, rubs, gallop - GI/Abdominal GI/Abdominal exam: Present: soft, normal bowel sounds. Absent: distended, tenderness, guarding, rebound - Extremities Exam Extremities exam: Present: normal inspection - Back Exam Back exam: Present: normal inspection - Neurological Exam Neurological exam: Present: alert, oriented X3 - Psychiatric Psychiatric exam: Present: normal affect, normal mood - Skin Skin exam: Present: warm, dry, intact, normal color. Absent: rash ED Course Vital Signs 11/13/18 11/13/18 11/13/18 17:27 18:47 19:35 Temperature 98.5 F Pulse Rate 134 H 114 H Respiratory 18 27 H Rate Blood Pressure 113/83 Blood Pressure 125/81 [Right] O2 Sat by Pulse 97 100 99 Oximetry 11/13/18 22:05 Temperature Pulse Rate 103 H Respiratory 18 Rate Blood Pressure Blood Pressure 103/69 [Right] O2 Sat by Pulse 99 Oximetry ED Medical Decision Making - Lab Data Result diagrams: 11/13/18 18:00 11/13/18 18:00 - EKG Data 11/13/18 22:39 EKG obtained at 1905 Sinus tachycardia rate 120 beats a minute normal axis normal intervals no ST-T signs of ischemia or signs of pericarditis - Radiology Data Radiology results: report reviewed Chest radiograph and CT scan both reveal Left lower lobe pneumonia, CT angio chest without signs of pulmonary embolism. - Medical Decision Making Pneumonia HIV, sepsis admitted to hospital service must consider atypical pneumonia in the setting with the patient noncompliant with ART and recurrent hospitalizations, most recent admission for pneumonia June according to patient, has had previous RUL PNA in 2017 at this facility Due to SIRS and recurrent hospitalizations, broad-spectrum antibiotics administered in the emergency department including cefepime and vancomycin Placed on respiratory isolation Critical care attestation.: If time is entered above; I have spent that time in minutes in the direct care of this critically ill patient, excluding procedure time. ED Disposition Clinical Impression: Left lower lobe pneumonia, HIV (human immunodeficiency virus infection), Sepsis Disposition: OP ADMIT IP TO THIS HOSP Is pt being admited?: Yes Does the pt Need Aspirin: No Condition: Stable Referrals: RICHARD EDWARD MD [Primary Care Provider] - 3-5 Days
[2018-11-13 20:09] LABS: HCG Qualitative,Urine Negative (Negative)
[2018-11-13 20:14] LABS: Bacteria,Urine 2+ /HPF (Negative); Bilirubin,Urine NEG (Negative); Blood,Urine MOD (Negative); Color,Urine Amber (Yellow); Mucus,Urine 2+ /HPF
[2018-11-13 20:15] LABS: Protein,Urine >500 mg/dL (Negative)
[2018-11-13] MEDS ORDERED: ZOFRAN ONE (20:54)
[2018-11-13] MEDS: MAXIPIME/NS 2 GM/100 ML 2 GM/100 ML BAG IV SCH (20:56)
--- NOTE | 2018-11-13 21:59 | Cat Scan Report ---
Chest CTA 11/13/2018 INDICATION / CLINICAL INFORMATION: SOB, chest pain, fever . TECHNIQUE: Precontrast bolus timing images were obtained followed by postcontrast axial and reformatted images. 3-plane MIP reconstructions were performed at an independent workstation by the technologist. All CT scans at this location are performed using CT dose reduction for ALARA by means of automated exposure control. COMPARISON: None available. FINDINGS: Enhancement of the pulmonary arteries is normal. No evidence of pulmonary embolus. Dense airspace consolidation is seen in the left lower lobe consistent with pneumonia. There is inter stitial fibrosis and evidence of bilateral bronchiectasis. No mediastinal adenopathy. Multiple small axillary lymph nodes are seen bilaterally. No acute skeletal findings. IMPRESSION: 1. No evidence of pulmonary embolus. 2. Left lower lobe consolidation consistent with pneumonia. 3. Interstitial fibrosis and bronchiectasis. Signer Name: Favian Thompson MD Signed: 11/13/2018 9:55 PM Workstation Name: [id number]
--- NOTE | 2018-11-13 22:31 | XRay Report ---
CHEST 2 VIEWS INDICATION / CLINICAL INFORMATION: fever cough dyspnea. COMPARISON: 03/09/2017 FINDINGS: SUPPORT DEVICES: None. HEART / MEDIASTINUM: The heart size is normal. LUNGS / PLEURA: The right lung is clear. There is moderate left lower lobe consolidation consistent w ith pneumonia. Upper lungs are clear. No edema or effusions. No pneumothorax. ADDITIONAL FINDINGS: No significant additional findings. IMPRESSION: 1. Left lower lobe pneumonia Signer Name: Issa Soni MD Signed: 11/13/2018 10:27 PM Workstation Name: [id number]
[2018-11-13] MEDS ORDERED: SODIUM CHLORIDE FLUSH SYRINGE 10 ML IV PRN (23:28)
[2018-11-13] MEDS ORDERED: ZOFRAN IV PRN (23:28)
[2018-11-13] MEDS ORDERED: TYLENOL PO PRN (23:28)
--- NOTE | 2018-11-13 23:30 | History and Physical Report ---
History of Present Illness Date of examination: 11/13/18 History of present illness: 23 years old female with history of hypertension, asthma and congenital HIV off HAART comes to the ER for non-productive cough, shortness of breath, fever and left side and left chest pain for 3 days, generalized malaise and subjective fever. eview Of Systems: Constitutional: no weight loss Ears, eyes, nose, mouth and throat: no nasal congestion, no nasal discharge, no sinus pressure, blurry vision, diplopia Neck: No neck pain or rigidity. Cardiovascular: No palpitations, chest pain Respiratory: + shortness of breath, cough Gastrointestinal: No hematochezia, abdominal pain Genitourinary : no dysuria, frequency , hematuria Musculoskeletal: no muscle ache , joint pain Integumentary: no rash, no pruritis Neurological: no parathesias, focal weakness Endocrine: no cold or heat intolerance, no polyuria or polydipsia Hematologic/Lymphatic: no easy bruising, no easy bleeding, no gland swelling Allergic/Immunologic: no urticaria, no angioedema. PAST MEDICAL HISTORY: hypertension, asthma and congenital HIV PAST SURGICAL HISTORY: ear SOCIAL HISTORY: Denies alcohol, tobacco, drugs FAMILY HISTORY: Hypertension Medications and Allergies Allergies Allergy/AdvReac Type Severity Reaction Status Date / Time No Known Allergies Allergy Unverified 10/06/16 13:22 Home Medications Medication Instructions Recorded Confirmed Last Taken Type Sulfamethoxazole/Trimethoprim 1 each PO Q24H #90 tablet 03/17/17 Unknown Rx [Bactrim DS TAB] Active Meds: Active Medications Cefepime HCl (Maxipime/Ns 2 Gm/100 Ml) 2 gm in 100 mls @ 200 mls/hr IV Q8H DAVID; Protocol Last Admin: 11/13/18 20:56 Dose: 200 mls/hr Documented by: Vancomycin HCl 750 mg/ Sodium (Chloride) 265 mls @ 132.5 mls/hr IV Q12H DAVID Exam - Physical Exam Narrative exam: Gen. appearance: Patient lying in bed, no apparent distress HEENT: Normocephalic, atraumatic, pupils equally round and reactive to light, extraocular movement intact, and no sclericterus, pale conjunctiva. No JVD or thyromegaly or nodule,neck supple, no carotid bruit ,mucous membranes moist, no exudate or erythema Heart: S1, S2, regular rate and rhythm Lungs: Crackles on the lesft base, breathing comfortable Abdomen: Positive bowel sounds, nontender, nondistended, no organomegaly Extremity: No edema, cyanosis, clubbing Skin: No rash, nodules, warm, dry Neuro: Oriented 3, cranial nerves II-12 intact, speech is fluent, motor and sensory intact - Constitutional Vitals: Temp Pulse Resp BP Pulse Ox 98.5 F 103 H 18 103/69 99 11/13/18 17:27 11/13/18 22:05 11/13/18 22:05 11/13/18 22:05 11/13/18 22:05 Results - Labs CBC & Chem 7: 11/13/18 18:00 11/13/18 18:00 Labs: Abnormal lab results 11/13/18 11/13/18 11/13/18 Range/Units 17:45 18:00 18:00 WBC 25.4 H (4.5-11.0) K/mm3 MCV 72 L (79-97) fl MCH 22 L (28-32) pg RDW 21.3 H (13.2-15.2) % Seg Neuts % (Manual) 90.0 H (40.0-70.0) % Lymphocytes % (Manual) 6.0 L (13.4-35.0) % Seg Neutrophils # Man 22.9 H (1.8-7.7) K/mm3 Monocytes # (Manual) 1.0 H (0.0-0.8) K/mm3 D-Dimer 2068.15 H (0-234) ng/mlDDU Sodium (137-145) mmol/L Potassium (3.6-5.0) mmol/L Chloride (98-107) mmol/L Carbon Dioxide (22-30) mmol/L BUN (7-17) mg/dL Creatinine (0.7-1.2) mg/dL Glucose (65-100) mg/dL Lactic Acid (0.7-2.0) mmol/L Calcium (8.4-10.2) mg/dL AST (5-40) units/L Alkaline Phosphatase (35-129) units/L Total Protein (6.3-8.2) g/dL Albumin (3.9-5) g/dL Ur Specific [place] 1.035 H (1.003-1.030) Urine WBC (Auto) 56.0 H (0.0-6.0) /HPF 11/13/18 11/13/18 11/13/18 Range/Units 18:00 18:00 21:42 WBC (4.5-11.0) K/mm3 MCV (79-97) fl MCH (28-32) pg RDW (13.2-15.2) % Seg Neuts % (Manual) (40.0-70.0) % Lymphocytes % (Manual) (13.4-35.0) % Seg Neutrophils # Man (1.8-7.7) K/mm3 Monocytes # (Manual) (0.0-0.8) K/mm3 D-Dimer (0-234) ng/mlDDU Sodium 133 L (137-145) mmol/L Potassium 3.2 L (3.6-5.0) mmol/L Chloride 96.7 L (98-107) mmol/L Carbon Dioxide 18 L (22-30) mmol/L BUN 19 H (7-17) mg/dL Creatinine 1.3 H (0.7-1.2) mg/dL Glucose 138 H (65-100) mg/dL Lactic Acid 3.90 H* 2.40 H* (0.7-2.0) mmol/L Calcium 8.2 L (8.4-10.2) mg/dL AST 167 H (5-40) units/L Alkaline Phosphatase 143 H (35-129) units/L Total Protein 9.7 H (6.3-8.2) g/dL Albumin 2.6 L (3.9-5) g/dL Ur Specific [place] (1.003-1.030) Urine WBC (Auto) (0.0-6.0) /HPF Assessment and Plan Assessment CAP HIV, congenital Asthma Plan admit to medicine Start IV antibiotic, follow cultures DVT proophalaxis
[2018-11-14 06:13] LABS: BUN/Creatinine Ratio 26; Blood Urea Nitrogen 18 mg/dL (7-17); Calcium 7.3 mg/dL (8.4-10.2); Hemolysis Index 10
[2018-11-14 06:51] LABS: Basophils # (Auto) 0.1 K/mm3 (0.0-0.1); Basophils % (Auto) 0.4 % (0.0-1.8); Hematocrit 28.8 % (30.3-42.9); Hemoglobin 8.9 gm/dl (10.1-14.3); Lymphocytes # (Auto) 1.2 K/mm3 (1.2-5.4); Lymphocytes % (Auto) 6.9 % (13.4-35.0); Mean Corpuscular HGB Conc 31 % (30-34); Mean Corpuscular Volume 71 fl (79-97); Monocytes # (Auto) 1.2 K/mm3 (0.0-0.8); Monocytes % (Auto) 6.8 % (0.0-7.3); Platelet Count 231 K/mm3 (140-440); Red Blood Count 4.08 M/mm3 (3.65-5.03)
[2018-11-14] MEDS ORDERED: K-DUR PO ONE (09:00)
[2018-11-14] MEDS: NACL 0.45% 1000 ML 1,000 ML IV SCH ×2 (09:22→19:18)
[2018-11-14 09:24] LABS: Red Cell Distribution Width 20.8 % (13.2-15.2)
[2018-11-14] MEDS: LOVENOX SUB-Q SCH (09:26)
[2018-11-14] MEDS: ZITHROMAX PO SCH (09:27)
[2018-11-14] MEDS ORDERED: VANCOMYCIN 750 MG in NACL 0.9% 250ML 250 ML IV SCH (10:00)
[2018-11-14] MEDS ORDERED: ROCEPHIN/NS 1 GM/50 ML 1 GM/50 ML BAG IV SCH (10:00)
[2018-11-14] MEDS: SODIUM CHLORIDE FLUSH SYRINGE 10 ML IV SCH ×2 (10:00→21:31)
[2018-11-14] MEDS ORDERED: LOVENOX SUB-Q SCH (10:00)
[2018-11-14] MEDS ORDERED: VANCOMYCIN/NS 1 GM/250 ML 1 GM/250 ML BAG IV SCH (15:00)
--- NOTE | 2018-11-14 15:17 | Consultation ---
History of Present Illness - Reason for Consult Consult date: 11/14/18 - History of Present Illness 23 yo F PMHx of congenital HIV (not on ART presently) who presents to the ER due to SOB and cough. She notes these complaints began approximately 3 days prior to admission and are associated with subjective fevers at home as well as L chest and side pain. Prior to this she was in her usual state of health with no complaints. She is from [place] and was supposed to return yesterday. She has an ID doctor there she occasionally follows with. her normal regimen is Genvoya and Prezista. She notes stopping these medications a couple of weeks ago as she "became too busy and forgot". She stopped outright instead of occasionally taking her meds. She notes she was in the hospital in [place] in August due to pneumonia, and at that time believes she was treated with Bactrim TID. She is not currently taking Bactrim (not instructed to) nor was she prescribed azithromycin. She is unsure of her most recent CD4 count or viral load. She was also previously seen here for pneumonia in March 2017 and was evaluated by our office. At that time her CD4 count was 14, and her viral load was 100,000. She has a history of intermittently taking her ART for months at a time followed by not taking it for months at a time. Afebrile since admission with an elevated WBCs of 28 which is now improved to 1 7. Receiving azithromycin, ceftriaxone, vancomycin. Chest CT with left lower lobe consolidation and interstitial fibrosis. Chest x-ray with the same left lower lobe pneumonia. Blood cultures remain no growth to date. Past History Past Medical History: other (HIV) Past Surgical History: No surgical history Social history: single. denies: smoking, IV drug use Family history: other (HIV) Medications and Allergies Allergies Allergy/AdvReac Type Severity Reaction Status Date / Time No Known Allergies Allergy Unverified 10/06/16 13:22 Home Medications Medication Instructions Recorded Confirmed Last Taken Type Sulfamethoxazole/Trimethoprim 1 each PO Q24H #90 tablet 03/17/17 Unknown Rx [Bactrim DS TAB] Active Meds: Active Medications Acetaminophen (Tylenol) 650 mg PO Q4H PRN PRN Reason: Pain MILD(1-3)/Fever >100.5/BARBER Azithromycin (Zithromax) 500 mg PO QDAY DAVID Last Admin: 11/14/18 09:27 Dose: 500 mg Documented by: Enoxaparin Sodium (Lovenox) 40 mg SUB-Q QDAY@1000 DAVID Last Admin: 11/14/18 09:26 Dose: 40 mg Documented by: Sodium Chloride (Nacl 0.45% 1000 Ml) 1,000 mls @ 125 mls/hr IV DIRECT [facility] Last Admin: 11/14/18 09:22 Dose: 125 mls/hr Documented by: Ceftriaxone Sodium (Rocephin/Ns 1 Gm/50 Ml) 1 gm in 50 mls @ 100 mls/hr IV Q24HR [facility]; Protocol Last Admin: 11/14/18 09:35 Dose: 100 mls/hr Documented by: Vancomycin HCl 1,250 mg/ (Sodium Chloride) 275 mls @ 166.667 mls/hr IV Q12HR@0600,1800 [facility] Ondansetron HCl (Zofran) 4 mg IV Q4H PRN PRN Reason: Nausea And Vomiting Oxycodone/Acetaminophen (Percocet 5/325) 1 tab PO Q6H PRN PRN Reason: Pain, Moderate (4-6) Sodium Chloride (Sodium Chloride Flush Syringe 10 Ml) 10 ml IV BID [facility] Sodium Chloride (Sodium Chloride Flush Syringe 10 Ml) 10 ml IV PRN PRN PRN Reason: LINE FLUSH Review of Systems Constitutional: fever, no weight loss, no weight gain, no chills, no sweats, no night sweats Ears, nose, mouth and throat: no sinus pain, no dysphagia, no sore throat Cardiovascular: chest pain, no orthopnea, no palpitations, no rapid/irregular heart beat, no edema Respiratory: cough, shortness of breath, dyspnea on exertion, no hemoptysis Gastrointestinal: no abdominal pain, no nausea, no vomiting, no diarrhea Genitourinary Female: flank pain, no dysuria, no urinary frequency, no urgency Musculoskeletal: no low back pain, no myalgias, no limitation of motion Integumentary: no rash, no pruritis, no redness, no sores Neurological: no numbness, no tingling, no syncope Endocrine: no cold intolerance, no heat intolerance, no polydipsia, no polyuria Hematologic/Lymphatic: no easy bruising, no easy bleeding, no lymphadenopathy Physical Examination - Physical Exam Narrative exam: Constitutional: awake, no distress, following commands Head, Ears, Nose: Normocephalic, atraumatic. External ears, nose normal Eyes: Conjunctivae/corneas clear. No icterus. No ptosis. Neck: Supple, no meningeal signs Oral: fair dentition, moist mucous membranes Cardiovascular: S1, S2 normal. Normal rhythm Respiratory: Decreased air entry on L GI: Soft, non-tender; bowel sounds normal. No peritoneal signs Musculoskeletal: No pedal edema, Skin: No rash or abscess Hem/Lymphatic: No palpable cervical or supraclavicular nodes. No lymphangitis Psych: no agitation Neurological: Moves all extremities, no focal defects - Constitutional Vitals: Vital Signs Temp Pulse Resp BP Pulse Ox 98.4 F 107 H 14 103/62 99 11/14/18 12:36 11/14/18 12:36 11/14/18 12:36 11/14/18 12:36 11/14/18 12:36 Temperature -Last 24 Hours Temperature 98.4 F Temperature 98.1 F Temperature 97.7 F Temperature 99.0 F Temperature 98.5 F Results - Labs CBC & Chem 7: 11/14/18 05:27 11/14/18 05:27 Labs: Abnormal lab results 11/13/18 11/13/18 11/13/18 Range/Units 17:45 18:00 18:00 WBC 25.4 H (4.5-11.0) K/mm3 Hgb (10.1-14.3) gm/dl Hct (30.3-42.9) % MCV 72 L (79-97) fl MCH 22 L (28-32) pg RDW 21.3 H (13.2-15.2) % Lymph % (Auto) (13.4-35.0) % [place] # (0.0-0.8) K/mm3 Seg Neutrophils % (40.0-70.0) % Seg Neuts % (Manual) 90.0 H (40.0-70.0) % Lymphocytes % (Manual) 6.0 L (13.4-35.0) % Seg Neutrophils # (1.8-7.7) K/mm3 Seg Neutrophils # Man 22.9 H (1.8-7.7) K/mm3 Monocytes # (Manual) 1.0 H (0.0-0.8) K/mm3 D-Dimer 2068.15 H (0-234) ng/mlDDU Sodium (137-145) mmol/L Potassium (3.6-5.0) mmol/L Chloride (98-107) mmol/L Carbon Dioxide (22-30) mmol/L BUN (7-17) mg/dL Creatinine (0.7-1.2) mg/dL Glucose (65-100) mg/dL Lactic Acid (0.7-2.0) mmol/L Calcium (8.4-10.2) mg/dL AST (5-40) units/L Alkaline Phosphatase (35-129) units/L Total Protein (6.3-8.2) g/dL Albumin (3.9-5) g/dL Ur Specific [place] 1.035 H (1.003-1.030) Urine WBC (Auto) 56.0 H (0.0-6.0) /HPF 11/13/18 11/13/18 11/13/18 Range/Units 18:00 18:00 21:42 WBC (4.5-11.0) K/mm3 Hgb (10.1-14.3) gm/dl Hct (30.3-42.9) % MCV (79-97) fl MCH (28-32) pg RDW (13.2-15.2) % Lymph % (Auto) (13.4-35.0) % [place] # (0.0-0.8) K/mm3 Seg Neutrophils % (40.0-70.0) % Seg Neuts % (Manual) (40.0-70.0) % Lymphocytes % (Manual) (13.4-35.0) % Seg Neutrophils # (1.8-7.7) K/mm3 Seg Neutrophils # Man (1.8-7.7) K/mm3 Monocytes # (Manual) (0.0-0.8) K/mm3 D-Dimer (0-234) ng/mlDDU Sodium 133 L (137-145) mmol/L Potassium 3.2 L (3.6-5.0) mmol/L Chloride 96.7 L (98-107) mmol/L Carbon Dioxide 18 L (22-30) mmol/L BUN 19 H (7-17) mg/dL Creatinine 1.3 H (0.7-1.2) mg/dL Glucose 138 H (65-100) mg/dL Lactic Acid 3.90 H* 2.40 H* (0.7-2.0) mmol/L Calcium 8.2 L (8.4-10.2) mg/dL AST 167 H (5-40) units/L Alkaline Phosphatase 143 H (35-129) units/L Total Protein 9.7 H (6.3-8.2) g/dL Albumin 2.6 L (3.9-5) g/dL Ur Specific [place] (1.003-1.030) Urine WBC (Auto) (0.0-6.0) /HPF 11/14/18 11/14/18 Range/Units 05:27 05:27 WBC 17.5 H (4.5-11.0) K/mm3 Hgb 8.9 L (10.1-14.3) gm/dl Hct 28.8 L (30.3-42.9) % MCV 71 L (79-97) fl MCH 22 L (28-32) pg RDW 20.8 H (13.2-15.2) % Lymph % (Auto) 6.9 L (13.4-35.0) % [place] # 1.2 H (0.0-0.8) K/mm3 Seg Neutrophils % 85.9 H (40.0-70.0) % Seg Neuts % (Manual) (40.0-70.0) % Lymphocytes % (Manual) (13.4-35.0) % Seg Neutrophils # 15.0 H (1.8-7.7) K/mm3 Seg Neutrophils # Man (1.8-7.7) K/mm3 Monocytes # (Manual) (0.0-0.8) K/mm3 D-Dimer (0-234) ng/mlDDU Sodium (137-145) mmol/L Potassium 3.4 L (3.6-5.0) mmol/L Chloride 109.2 H (98-107) mmol/L Carbon Dioxide 20 L (22-30) mmol/L BUN 18 H (7-17) mg/dL Creatinine (0.7-1.2) mg/dL Glucose 117 H (65-100) mg/dL Lactic Acid (0.7-2.0) mmol/L Calcium 7.3 L (8.4-10.2) mg/dL AST (5-40) units/L Alkaline Phosphatase (35-129) units/L Total Protein (6.3-8.2) g/dL Albumin (3.9-5) g/dL Ur Specific [place] (1.003-1.030) Urine WBC (Auto) (0.0-6.0) /HPF - Imaging and Cardiology Abdominal x-ray: image reviewed CT scan - chest: image reviewed Assessment and Plan Cultures: 11/13/18 BCx - NGTD A/P: 23-year-old female with history of congenital HIV not on antiretroviral therapy admitted with pneumonia. 1. Pneumonia at this point a believe it is a bacterial pneumonia given its focal consolidation left lower lobe. Obviously PJP is a consideration given her history of noncompliance with her antiretrovirals, however it is not usually known to consolidate like that. I would continue antibiotics for now, however i f she doesn't improve would consider starting Bactrim 3 times a day as PJP treatment. Can stop vancomycin, however would continue ceftriaxone and azithromycin. 2. HIV she is intermittently compliant with her ART, she notes increased only stopping taking it 2 weeks ago but was only compliant for a couple of months. Her home regimen is Genvoya and Prezista. She is educated enough to know that it is preferable to stop outright then to take on intermittent days. I will defer starting her ART to the outpatient setting as we do not have her current medications, nor an updated genotype to ensure a similar but different regimen would be effective. We'll check a viral load and CD4 count. Her most recent genotype here in March 2017 showed resistance to stop AZT, stavudine and posible resistance to abacavir, TDF, and didanovir. Recs: - Stop vancomycin Continue azithromycin Increased ceftriaxone to 2 g every 24 hours -If no improvement consider adding Bactrim 2 DS TID - hold on ART as we do not have her medications or updated genotype. - ordered CD4 and viral load
[2018-11-14] MEDS ORDERED: VANCOMYCIN 1,250 MG in NACL 0.9% 250ML 250 ML IV SCH (16:00)
[2018-11-15] MEDS: NACL 0.45% 1000 ML 1,000 ML IV SCH ×3 (04:24→21:22)
--- NOTE | 2018-11-15 07:19 | Progress Note ---
Assessment and Plan CAP with sepsis - monitor at [facility] - cont IV antibiotic, follow cultures - Will consult ID, nebs as needed, iv fluid - Supplemental O2 to keep O2 sat >92 Asthma with exacerbation - nebs as needed, - Supplemental O2 to keep O2 sat >92 HIV, congenital Noncompliance with HAART - ID consult, counseled for compliance GILDA, due to vasomotor nephropathy - cont iv fluid Hypokalemia, replete and monitor BMP DVT Px, with Lovenox Subjective Date of service: 11/14/18 Interval history: Patient seen and examined. Medical records and medication list reviewed. No acute event overnight noted by the RN. Patient is tolerating diet. Discussed plan of care at bedside with patient. Spiking fever, c/o SOB Objective - Constitutional Vitals: Vital Signs - 12hr 11/14/18 11/15/18 23:54 05:49 Temperature 100.1 F H 97.0 F L Pulse Rate 111 H 93 H Respiratory 22 16 Rate Blood Pressure 108/56 104/67 O2 Sat by Pulse 100 100 Oximetry General appearance: Present: no acute distress, well-nourished - EENT Eyes: PERRL, EOM intact ENT: hearing intact, clear oral mucosa Ears: bilateral: normal - Neck Neck: supple, normal ROM - Respiratory Respiratory effort: normal Respiratory: bilateral: CTA - Cardiovascular Rhythm: regular Heart Sounds: Present: S1 & S2. Absent: gallop, rub Extremities: pulses intact, No edema, normal color, Full ROM - Gastrointestinal General gastrointestinal: Present: soft, non-tender, non-distended, normal bowel sounds - Integumentary Integumentary: clear, warm, dry - Musculoskeletal Musculoskeletal: 1, strength equal bilaterally - Neurologic Neurologic: moves all extremities - Psychiatric Psychiatric: memory intact, appropriate mood/affect, intact judgment & insight - Labs CBC & Chem 7: 11/14/18 05:27 11/14/18 05:27 Labs: Abnormal lab results 11/14/18 Range/Units 05:27 WBC 17.5 H (4.5-11.0) K/mm3 Hgb 8.9 L (10.1-14.3) gm/dl Hct 28.8 L (30.3-42.9) % MCV 71 L (79-97) fl MCH 22 L (28-32) pg RDW 20.8 H (13.2-15.2) % Lymph % (Auto) 6.9 L (13.4-35.0) % - Imaging and cardiology Chest x-ray: report reviewed CT scan - chest: report reviewed
--- NOTE | 2018-11-15 09:20 | Progress Note ---
Assessment and Plan Cultures: 11/13/18 BCx - GPC bacteremia, 1 out of 4 bottles A/P: 23-year-old female with history of congenital HIV not on antiretroviral therapy admitted with pneumonia. 1. Pneumonia at this point a believe it is a bacterial pneumonia given its focal consolidation left lower lobe. Obviously PJP is a consideration given her history of noncompliance with her antiretrovirals, however it is not usually known to consolidate like that. I would continue antibiotics for now, however if she doesn't improve would consider starting Bactrim 3 times a day as PJP treatment. Continue ceftriaxone and azithromycin. 2. Gram Positive Cocci Bacteremia: 1 out of 4 bottles. Likely a contaminant. 2. HIV she is intermittently compliant with her ART, she notes increased only stopping taking it 2 weeks ago but was only compliant for a couple of months. Her home regimen is Genvoya and Prezista. She is educated enough to know that it is preferable to stop outright then to take on intermittent days. I will defer starting her ART to the outpatient setting as we do not have her current medications, nor an updated genotype to ensure a similar but different regimen would be effective. We'll check a viral load and CD4 count. Her most recent genotype here in March 2017 showed resistance to stop AZT, stavudine and posible resistance to abacavir, TDF, and didanovir. Recs: Continue azithromycin 500mg IV q day, D2 of D5 continue ceftriaxone to 2 g every 24 hours -If no improvement consider adding Bactrim 2 DS TID - hold on ART as we do not have her medications or updated genotype - ordered CD4 and viral load -follow-up blood cultures for ID and susceptibility -Order repeat chest xray [facility] M: [id number] O:[phone] Subjective Date of service: 11/15/18 Interval history: Patient seen and examined. Reports increased dry cough and SOB. Low grade fever. Objective - Exam Narrative Exam: Constitutional: Awake. Alert. mild distress Head, Ears, Nose: Normocephalic, atraumatic. External ears, nose normal Eyes: Conjunctivae/corneas clear. No icterus. No ptosis. Neck: Supple, no meningeal signs Oral: fair dentition, moist mucous membranes Cardiovascular: S1, S2 normal. Normal rhythm Respiratory: Decreased air entry on L. Rhonchi auscultated on R. + dry cough GI: Soft, non-tender; bowel sounds normal. No peritoneal signs Musculoskeletal: No pedal edema, Skin: No rash or abscess Hem/Lymphatic: No palpable cervical or supraclavicular nodes. No lymphangitis Psych: no agitation Neurological: Moves all extremities, no focal defects - Constitutional Vitals: Vital Signs Temp Pulse Resp BP Pulse Ox 97.0 F L 93 H 16 104/67 100 11/15/18 05:49 11/15/18 05:49 11/15/18 05:49 11/15/18 05:49 11/15/18 05:49 Temperature -Last 24 Hours Temperature 97.0 F Temperature 100.1 F Temperature 98.1 F Temperature 98.4 F - Labs CBC & Chem 7: 11/14/18 05:27 11/14/18 05:27 Labs: Abnormal lab results 11/14/18 Range/Units 05:27 WBC 17.5 H (4.5-11.0) K/mm3 Hgb 8.9 L (10.1-14.3) gm/dl Hct 28.8 L (30.3-42.9) % MCV 71 L (79-97) fl MCH 22 L (28-32) pg RDW 20.8 H (13.2-15.2) % Lymph % (Auto) 6.9 L (13.4-35.0) %
[2018-11-15] MEDS: ZITHROMAX PO SCH (10:06)
[2018-11-15] MEDS: SODIUM CHLORIDE FLUSH SYRINGE 10 ML IV SCH ×2 (10:06→21:23)
[2018-11-15] MEDS: ROCEPHIN/NS 2 GM/100 ML 2 GM/100 ML BAG IV SCH (10:06)
[2018-11-15] MEDS: LOVENOX SUB-Q SCH (10:06)
--- NOTE | 2018-11-15 15:35 | Progress Note ---
Assessment and Plan Sepsis with pneumonia and bacteremia - Blood culture growing cocci in pairs - Continue IV antibiotics for now, follow culture - ID following CAP - monitor at [facility] - cont IV antibiotic, follow cultures - Consulted ID, nebs as needed, iv fluid - Supplemental O2 to keep O2 sat >92 Asthma with exacerbation - nebs as needed, - Supplemental O2 to keep O2 sat >92 HIV, congenital Noncompliance with HAART - ID consulted, counseled for compliance - ordered Cd4 count GILDA, due to vasomotor nephropathy - cont iv fluid, resolved Hypokalemia, replete and monitor BMP DVT Px, with Lovenox Physical exam: General appearance: Present: no acute distress, well-nourished - EENT Eyes: PERRL, EOM intact ENT: hearing intact, clear oral mucosa Ears: bilateral: normal - Neck Neck: supple, normal ROM - Respiratory Respiratory effort: normal Respiratory: bilateral: CTA - Cardiovascular Rhythm: regular Heart Sounds: Present: S1 & S2. Absent: gallop, rub Extremities: pulses intact, No edema, normal color, Full ROM - Gastrointestinal General gastrointestinal: Present: soft, non-tender, non-distended, normal bowel sounds - Integumentary Integumentary: clear, warm, dry - Musculoskeletal Musculoskeletal: 1, strength equal bilaterally - Neurologic Neurologic: moves all extremities - Psychiatric Psychiatric: memory intact, appropriate mood/affect, intact judgment & insight Subjective Date of service: 11/15/18 Interval history: Patient seen and examined. Medical records and medication list reviewed. No acute event overnight noted by the RN. Patient is tolerating diet. Discussed plan of care at bedside with patient. mostly afebrile, breathing much better Objective - Constitutional Vitals: Vital Signs - 12hr 11/15/18 11/15/18 05:49 11:31 Temperature 97.0 F L 98.1 F Pulse Rate 93 H 79 Respiratory 16 20 Rate Blood Pressure 104/67 115/80 O2 Sat by Pulse 100 100 Oximetry - Labs CBC & Chem 7: 11/16/18 06:59 11/17/18 09:23
[2018-11-15] MEDS: MAXIPIME/NS 2 GM/100 ML 2 GM/100 ML BAG IV SCH (20:07)
[2018-11-15] MEDS: PERCOCET 5/325 PO PRN (21:22)
[2018-11-15 23:55] LABS: Hematocrit 24.7 % (30.3-42.9); Hemoglobin 7.8 gm/dl (10.1-14.3); Mean Corpuscular HGB Conc 32 % (30-34); Mean Corpuscular Volume 70 fl (79-97); Platelet Count 315 K/mm3 (140-440); Red Blood Count 3.52 M/mm3 (3.65-5.03)
[2018-11-16 00:01] LABS: Red Cell Distribution Width 21.1 % (13.2-15.2)
[2018-11-16 00:09] LABS: BUN/Creatinine Ratio 8; Blood Urea Nitrogen 4 mg/dL (7-17); Calcium 7.8 mg/dL (8.4-10.2); Hemolysis Index 6
[2018-11-16] MEDS ORDERED: K-DUR PO NR (00:33)
[2018-11-16] MEDS: NACL 0.45% 1000 ML 1,000 ML IV SCH ×3 (04:47→23:57)
[2018-11-16 07:30] LABS: Hematocrit 25.2 % (30.3-42.9); Hemoglobin 8.1 gm/dl (10.1-14.3); Mean Corpuscular HGB Conc 32 % (30-34); Platelet Count 323 K/mm3 (140-440); Red Blood Count 3.62 M/mm3 (3.65-5.03)
[2018-11-16 07:35] LABS: Mean Corpuscular Volume 70 fl (79-97); Red Cell Distribution Width 20.9 % (13.2-15.2)
[2018-11-16 07:54] LABS: BUN/Creatinine Ratio 6; Blood Urea Nitrogen 3 mg/dL (7-17); Hemolysis Index 2
--- NOTE | 2018-11-16 09:06 | XRay Report ---
CHEST 1 VIEW INDICATION: Reevaluate left lung pneumonia. COMPARISON: 11/13/2018 FINDINGS: Support devices: None. Heart: Within normal limits. Lungs/Pleura: Infiltrate throughout the left lung base has increased by 25% since the exam 3 days ago . The right lung remains clear. Additional findings: None. IMPRESSION: Mild increase in the left lung infiltrate Signer Name: Dick uV Jr, MD Signed: 11/16/2018 9:02 AM Workstation Name: [id number]
[2018-11-16] MEDS: ROCEPHIN/NS 2 GM/100 ML 2 GM/100 ML BAG IV SCH (09:32)
[2018-11-16] MEDS: ZITHROMAX PO SCH (09:32)
[2018-11-16] MEDS: LOVENOX SUB-Q SCH (09:32)
[2018-11-16] MEDS: SODIUM CHLORIDE FLUSH SYRINGE 10 ML IV SCH ×2 (09:33→22:11)
[2018-11-16 09:37] LABS: Basophils % (Manual) 0 % (0.0-1.8); Total Cells Counted 100
[2018-11-16 09:38] LABS: Anisocytosis 1+; Hypochromasia 1+; Ovalocytes Few; Platelet Estimate Consistent w Auto; Poikilocytosis Few; Target Cells Few
[2018-11-16] MEDS: PERCOCET 5/325 PO PRN ×2 (09:43→22:20)
--- NOTE | 2018-11-16 10:04 | Progress Note ---
Assessment and Plan Cultures: 11/13/18 BCx - GPC bacteremia, 1 out of 4 bottles 11/16/18 BCX - In progress A/P: 23-year-old female with history of congenital HIV not on antiretroviral therapy admitted with pneumonia. 1. Pneumonia at this point a believe it is a bacterial pneumonia given its focal consolidation left lower lobe. Obviously PJP is a consideration given her history of noncompliance with her antiretrovirals, however it is not usually known to consolidate like that. Repeat CXR shows that infiltrate throughout the left lung base has increased by 25% since the exam 3 days ago. The right lung remains clear. Will escalate to Vancomycin and Cefepime for worsening PNA. Discontinue azithromycin and ceftriaxone. 2. Gram Positive Cocci Bacteremia: 1 out of 4 bottles. Likely a contaminant. Fo llow-up repeat blood cultures to ensure clearance. 2. HIV she is intermittently compliant with her ART, she notes increased only stopping taking it 2 weeks ago but was only compliant for a couple of months. Her home regimen is Genvoya and Prezista. She is educated enough to know that it is preferable to stop outright then to take on intermittent days. I will defer starting her ART to the outpatient setting as we do not have her current medications, nor an updated genotype to ensure a similar but different regimen would be effective. We'll check a viral load and CD4 count. Her most recent genotype here in March 2017 showed resistance to stop AZT, stavudine and posible resistance to abacavir, TDF, and didanovir. Recs: Discontinue azithromycin and Ceftriaxone start Cefepime and vancomycin for worsening PNA -Order [id number] - hold on ART as we do not have her medications or updated genotype - follow-up ordered CD4 and viral load -follow-up blood cultures for ID and susceptibility -order repeat blood cultures Dr. Brown will round on Monday. Dr. Hanson is taking call this weekend , please call for questions. [facility] M: [phone] O:[phone] Subjective Date of service: 11/16/18 Interval history: Patient seen and examined. Sitting up in bed. Reports improved respiratory status, continued generalized weakness. Objective - Exam Narrative Exam: Constitutional: Awake. Alert. No acute distress Head, Ears, Nose: Normocephalic, atraumatic. External ears, nose normal Eyes: Conjunctivae/corneas clear. No icterus. No ptosis. Neck: Supple, no meningeal signs Oral: fair dentition, moist mucous membranes Cardiovascular: S1, S2 normal. Normal rhythm Respiratory: Decreased air entry on L. + dry cough GI: Soft, non-tender; bowel sounds normal. No peritoneal signs Musculoskeletal: No pedal edema, Skin: No rash or abscess Hem/Lymphatic: No palpable cervical or supraclavicular nodes. No lymphangitis Psych: no agitation Neurological: Moves all extremities, no focal defects - Constitutional Vitals: Vital Signs Temp Pulse Resp BP Pulse Ox 97.7 F 95 H 16 111/69 95 11/16/18 05:10 11/16/18 05:10 11/16/18 05:10 11/16/18 05:10 11/16/18 05:10 Temperature -Last 24 Hours Temperature 97.7 F Temperature 99.9 F Temperature 99.1 F Temperature 98.1 F - Labs CBC & Chem 7: 11/16/18 06:59 11/16/18 06:59 Labs: Abnormal lab results 11/15/18 11/15/18 11/16/18 Range/Units 22:41 22:41 06:59 RBC 3.52 L 3.62 L (3.65-5.03) M/mm3 Hgb 7.8 L 8.1 L (10.1-14.3) gm/dl Hct 24.7 L 25.2 L (30.3-42.9) % MCV 70 L 70 L (79-97) fl MCH 22 L 22 L (28-32) pg RDW 21.1 H 20.9 H (13.2-15.2) % Lymphocytes # (Manual) 1.1 L (1.2-5.4) K/mm3 Potassium 2.8 L* (3.6-5.0) mmol/L BUN 4 L (7-17) mg/dL Creatinine 0.5 L (0.7-1.2) mg/dL Glucose 106 H (65-100) mg/dL Calcium 7.8 L (8.4-10.2) mg/dL 11/16/18 Range/Units 06:59 RBC (3.65-5.03) M/mm3 Hgb (10.1-14.3) gm/dl Hct (30.3-42.9) % MCV (79-97) fl MCH (28-32) pg RDW (13.2-15.2) % Lymphocytes # (Manual) (1.2-5.4) K/mm3 Potassium 3.2 L (3.6-5.0) mmol/L BUN 3 L (7-17) mg/dL Creatinine 0.5 L (0.7-1.2) mg/dL Glucose (65-100) mg/dL Calcium 8.0 L (8.4-10.2) mg/dL
[2018-11-16] MEDS ORDERED: VANCOMYCIN PHARMACY TO DOSE IV SCH (11:00)
[2018-11-16] MEDS ORDERED: K-DUR PO ONE (12:45)
[2018-11-16] MEDS ORDERED: MAXIPIME/NS 1 GM/100 ML 1 GM/100 ML BAG IV SCH (14:00)
[2018-11-16] MEDS: VANCOMYCIN/NS 1 GM/250 ML 1 GM/250 ML BAG IV SCH ×2 (14:06→22:11)
[2018-11-16] MEDS: MAXIPIME/NS 2 GM/100 ML 2 GM/100 ML BAG IV SCH (17:42)
[2018-11-17] MEDS: MAXIPIME/NS 2 GM/100 ML 2 GM/100 ML BAG IV SCH ×3 (01:05→18:37)
[2018-11-17] MEDS: VANCOMYCIN/NS 1 GM/250 ML 1 GM/250 ML BAG IV SCH ×3 (05:40→22:00)
[2018-11-17] MEDS: NACL 0.45% 1000 ML 1,000 ML IV SCH (09:47)
[2018-11-17 10:13] LABS: BUN/Creatinine Ratio 5; Blood Urea Nitrogen 2 mg/dL (7-17); Calcium 7.9 mg/dL (8.4-10.2); Hemolysis Index 0
[2018-11-17] MEDS: D5W/0.45% NACL/KCL 20 MEQ 20 MEQ/1,000 ML BAG IV SCH (11:05)
[2018-11-17] MEDS: LOVENOX SUB-Q SCH (11:05)
--- NOTE | 2018-11-17 11:17 | Progress Note ---
Assessment and Plan Sepsis with pneumonia and bacteremia - Blood culture growing Strep Pneumoniae - Continue IV antibiotics for now, follow culture CAP vs PJP ? - monitor at [facility] - cont IV antibiotic, follow cultures - Consulted ID, nebs as needed, iv fluid - Supplemental O2 to keep O2 sat >92 - Imaging not consistent with PJP, but ordered [id number] by ID to rule out. Asthma with exacerbation - nebs as needed, - Supplemental O2 to keep O2 sat >92 HIV, congenital Noncompliance with HAART - ID consulted, counseled for compliance - ordered Cd4 count and viral load - pending GILDA, due to vasomotor nephropathy - cont iv fluid, resolved Hypokalemia, - dropped to 2.9 again, replete and monitor BMP DVT Px, with Lovenox Physical exam: General appearance: Present: no acute distress, well-nourished - EENT Eyes: PERRL, EOM intact ENT: hearing intact, clear oral mucosa Ears: bilateral: normal - Neck Neck: supple, normal ROM - Respiratory Respiratory effort: normal Respiratory: bilateral: CTA - Cardiovascular Rhythm: regular Heart Sounds: Present: S1 & S2. Absent: gallop, rub Extremities: pulses intact, No edema, normal color, Full ROM - Gastrointestinal General gastrointestinal: Present: soft, non-tender, non-distended, normal bowel sounds - Integumentary Integumentary: clear, warm, dry - Musculoskeletal Musculoskeletal: 1, strength equal bilaterally - Neurologic Neurologic: moves all extremities - Psychiatric Psychiatric: memory intact, appropriate mood/affect, intact judgment & insight Subjective Date of service: 11/17/18 Interval history: Patient seen and examined. Medical records and medication list reviewed. No acute event overnight noted by the RN. Patient is tolerating diet. Discussed plan of care at bedside with patient. mostly afebrile, breathing much better K level dropped to 2.9 this am Objective - Constitutional Vitals: Vital Signs - 12hr 11/16/18 11/17/18 11/17/18 23:20 02:00 05:17 Temperature 98.4 F Pulse Rate 84 Respiratory 18 20 Rate Respiratory 18 Rate [ generlized] Blood Pressure 111/72 O2 Sat by Pulse 100 Oximetry - Labs CBC & Chem 7: 11/16/18 06:59 11/17/18 09:23 Labs: Abnormal lab results 11/17/18 Range/Units 09:23 Potassium 2.9 L* (3.6-5.0) mmol/L BUN 2 L (7-17) mg/dL Creatinine 0.4 L (0.7-1.2) mg/dL Calcium 7.9 L (8.4-10.2) mg/dL
--- NOTE | 2018-11-17 11:19 | Progress Note ---
Assessment and Plan Sepsis with pneumonia and bacteremia - Blood culture growing cocci in pairs - Continue IV antibiotics for now, follow culture - ID following - Imaging not consistent with PJP, but ordered [id number] by ID to rule out. CAP - monitor at [facility] - cont IV antibiotic, follow cultures - Consulted ID, nebs as needed, iv fluid - Supplemental O2 to keep O2 sat >92 Asthma with exacerbation - nebs as needed, - Supplemental O2 to keep O2 sat >92 HIV, congenital Noncompliance with HAART - ID consulted, counseled for compliance - ordered Cd4 count and viral load GILDA, due to vasomotor nephropathy - cont iv fluid, resolved Hypokalemia, replete and monitor BMP DVT Px, with Lovenox Physical exam: General appearance: Present: no acute distress, well-nourished - EENT Eyes: PERRL, EOM intact ENT: hearing intact, clear oral mucosa Ears: bilateral: normal - Neck Neck: supple, normal ROM - Respiratory Respiratory effort: normal Respiratory: bilateral: CTA - Cardiovascular Rhythm: regular Heart Sounds: Present: S1 & S2. Absent: gallop, rub Extremities: pulses intact, No edema, normal color, Full ROM - Gastrointestinal General gastrointestinal: Present: soft, non-tender, non-distended, normal bowel sounds - Integumentary Integumentary: clear, warm, dry - Musculoskeletal Musculoskeletal: 1, strength equal bilaterally - Neurologic Neurologic: moves all extremities - Psychiatric Psychiatric: memory intact, appropriate mood/affect, intact judgment & insight Subjective Date of service: 11/16/18 Interval history: Patient seen and examined. Medical records and medication list reviewed. No acute event overnight noted by the RN. Patient is tolerating diet. Discussed plan of care at bedside with patient. mostly afebrile, breathing much better Objective - Constitutional Vitals: Vital Signs - 12hr 11/16/18 11/17/18 11/17/18 23:20 02:00 05:17 Temperature 98.4 F Pulse Rate 84 Respiratory 18 20 Rate Respiratory 18 Rate [ generlized] Blood Pressure 111/72 O2 Sat by Pulse 100 Oximetry - Labs CBC & Chem 7: 11/16/18 06:59 11/17/18 09:23 Labs: Abnormal lab results 11/17/18 Range/Units 09:23 Potassium 2.9 L* (3.6-5.0) mmol/L BUN 2 L (7-17) mg/dL Creatinine 0.4 L (0.7-1.2) mg/dL Calcium 7.9 L (8.4-10.2) mg/dL
[2018-11-17] MEDS: K-DUR PO SCH ×2 (12:03→17:28)
[2018-11-17] MEDS: PERCOCET 5/325 PO PRN (12:03)
[2018-11-17] MEDS: KCL 10MEQ/100ML 10 MEQ/100 ML BAG IV SCH ×3 (12:24→18:40)
[2018-11-17] MEDS: SODIUM CHLORIDE FLUSH SYRINGE 10 ML IV SCH ×2 (12:25→22:00)
[2018-11-17] MEDS: POTASSIUM CHLORIDE PO SCH ×2 (13:08→19:34)
[2018-11-18] MEDS: MAXIPIME/NS 2 GM/100 ML 2 GM/100 ML BAG IV SCH ×2 (03:00→10:23)
[2018-11-18 05:51] LABS: Hematocrit 23.1 % (30.3-42.9); Hemoglobin 7.4 gm/dl (10.1-14.3); Mean Corpuscular HGB Conc 32 % (30-34); Platelet Count 350 K/mm3 (140-440); Red Blood Count 3.31 M/mm3 (3.65-5.03)
[2018-11-18 05:53] LABS: Mean Corpuscular Volume 70 fl (79-97); Red Cell Distribution Width 21.1 % (13.2-15.2)
[2018-11-18 06:09] LABS: BUN/Creatinine Ratio 8; Blood Urea Nitrogen 3 mg/dL (7-17); Calcium 7.9 mg/dL (8.4-10.2); Hemolysis Index 0
[2018-11-18 07:10] LABS: Band Neutrophils # (Manual) 0.3 K/mm3; Basophils % (Manual) 0 % (0.0-1.8); Total Cells Counted 100
[2018-11-18 07:11] LABS: Anisocytosis 1+; Hypochromasia 1+
[2018-11-18 07:12] LABS: Platelet Estimate Consistent w Auto
[2018-11-18] MEDS: VANCOMYCIN/NS 1 GM/250 ML 1 GM/250 ML BAG IV SCH (07:31)
[2018-11-18] MEDS: LOVENOX SUB-Q SCH ×2 (10:23→10:28)
[2018-11-18] MEDS: SODIUM CHLORIDE FLUSH SYRINGE 10 ML IV SCH ×2 (10:24→23:37)
[2018-11-18] MEDS: POTASSIUM CHLORIDE PO SCH (10:24)
--- NOTE | 2018-11-18 12:23 | Progress Note ---
Assessment and Plan Sepsis with pneumonia and bacteremia - Blood culture growing Strep Pneumoniae - Continue IV antibiotics for now, ordered TTE [facility], follow cultures - Consulted ID, nebs as needed, iv fluid - Supplemental O2 to keep O2 sat >92 - Imaging not consistent with PJP, but ordered [id number] by ID to rule out. Asthma with exacerbation - nebs as needed, - Supplemental O2 to keep O2 sat >92 HIV, congenital Noncompliance with HAART - ID consulted, counseled for compliance - ordered Cd4 count and viral load - pending GILDA, due to vasomotor nephropathy - cont iv fluid, resolved Hypokalemia, - cont to replete and monitor BMP - refusing oral replacement DVT Px, with Lovenox Physical exam: General appearance: Present: no acute distress, well-nourished - EENT Eyes: PERRL, EOM intact ENT: hearing intact, clear oral mucosa Ears: bilateral: normal - Neck Neck: supple, normal ROM - Respiratory Respiratory effort: normal Respiratory: bilateral: CTA - Cardiovascular Rhythm: regular Heart Sounds: Present: S1 & S2. Absent: gallop, rub Extremities: pulses intact, No edema, normal color, Full ROM - Gastrointestinal General gastrointestinal: Present: soft, non-tender, non-distended, normal bowel sounds - Integumentary Integumentary: clear, warm, dry - Musculoskeletal Musculoskeletal: 1, strength equal bilaterally - Neurologic Neurologic: moves all extremities - Psychiatric Psychiatric: memory intact, appropriate mood/affect, intact judgment & insight Subjective Date of service: 11/18/18 Interval history: Patient seen and examined. Medical records and medication list reviewed. No acute event overnight noted by the RN. Patient is tolerating diet. Discussed plan of care at bedside with patient. mostly afebrile, breathing much better Objective - Constitutional Vitals: Vital Signs - 12hr 11/18/18 11/18/18 05:45 10:49 Temperature 98.0 F Pulse Rate 84 Respiratory 16 Rate Blood Pressure 126/86 O2 Sat by Pulse 100 96 Oximetry - Labs CBC & Chem 7: 11/18/18 05:07 11/19/18 04:58 Labs: Abnormal lab results 11/18/18 11/18/18 11/18/18 Range/Units 05:07 05:07 05:07 RBC 3.31 L (3.65-5.03) M/mm3 Hgb 7.4 L (10.1-14.3) gm/dl Hct 23.1 L (30.3-42.9) % MCV 70 L (79-97) fl MCH 22 L (28-32) pg RDW 21.1 H (13.2-15.2) % Nucleated RBC % 4.0 H (0.0-0.9) % Potassium 3.3 L (3.6-5.0) mmol/L BUN 3 L (7-17) mg/dL Creatinine 0.4 L (0.7-1.2) mg/dL Calcium 7.9 L (8.4-10.2) mg/dL Vancomycin Trough 4.0 L (5.0-20.0) ug/mL
--- NOTE | 2018-11-18 13:59 | Progress Note ---
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 1. Presumed Pneumococcal Pneumonia: CXR with focal consolidation left lower lobe. 11/13/18 Blood cultures grew Strep pneumoniae 1 out of 4 bottles. On cefepime and vancomycin. 2. Strep pneumoniae Bacteremia: 1 out of 4 bottles. Always a pathogen. Repeat blood culture 11/16/18 negative. 2. HIV she is intermittently compliant with her ART, she notes increased only stopping taking it 2 weeks ago but was only compliant for a couple of months. Her home regimen is Genvoya and Prezista. She is educated enough to know that it is preferable to stop outright then to take on intermittent days. I will defer starting her ART to the outpatient setting as we do not have her current medications, nor an updated genotype to ensure a similar but different regimen would be effective. We'll check a viral load and CD4 count. Her most recent genotype here in March 2017 showed resistance to stop AZT, stavudine and posible resistance to abacavir, TDF, and didanovir. Recs: - Obtain TTE to r/o endocarditis - stop cefepime and vancomycin - start ceftriaxone 2 gm IV qday - f/u CD4 and viral load - if TTE is negative for vegetation ok to discharge on levaquin 750 mg PO qday total 10 days from negative blood culture until 11/24/2018 - patient desires to return back home in [facility] where she sees her HIV provider, educated to f/u with her HIV next week Dr Brown is rounding tomorrow Nida Hanson MD [facility], [place] ([facility]) Office [phone] Subjective Date of service: 11/18/18 Principal diagnosis: pneumonia Interval history: Patient feels some better, but still coughing up. No fever, no hypoxemia reported. Objective - Exam Narrative Exam: Constitutional: Alert in NAD pleasant Head, Ears, Nose: Normocephalic, atraumatic. External ears, nose normal Eyes: Conjunctivae/corneas clear. No icterus. No ptosis. Neck: Supple, no meningeal signs Oral: fair dentition, moist mucous membranes Cardiovascular: S1, S2 normal. Normal rhythm Respiratory: mehdi rhonchi GI: Soft, non-tender; bowel sounds normal. No peritoneal signs Musculoskeletal: No pedal edema, Skin: No rash or abscess Hem/Lymphatic: No palpable cervical or supraclavicular nodes. No lymphangitis Psych: no agitation Neurological: Moves all extremities, no focal defects - Constitutional Vitals: Vital Signs Temp Pulse Resp BP Pulse Ox 98.5 F 85 15 124/83 100 11/18/18 12:17 11/18/18 12:23 11/18/18 12:17 11/18/18 12:17 11/18/18 12:23 Temperature -Last 24 Hours Temperature 98.5 F Temperature 98.0 F Temperature 99.6 F Temperature 98.4 F - Labs CBC & Chem 7: 11/18/18 05:07 11/18/18 05:07 Labs: Abnormal lab results 11/18/18 11/18/18 11/18/18 Range/Units 05:07 05:07 05:07 RBC 3.31 L (3.65-5.03) M/mm3 Hgb 7.4 L (10.1-14.3) gm/dl Hct 23.1 L (30.3-42.9) % MCV 70 L (79-97) fl MCH 22 L (28-32) pg RDW 21.1 H (13.2-15.2) % Nucleated RBC % 4.0 H (0.0-0.9) % Potassium 3.3 L (3.6-5.0) mmol/L BUN 3 L (7-17) mg/dL Creatinine 0.4 L (0.7-1.2) mg/dL Calcium 7.9 L (8.4-10.2) mg/dL Vancomycin Trough 4.0 L (5.0-20.0) ug/mL
[2018-11-18] MEDS: VANCOMYCIN 1,500 MG in NACL 0.9% 500 ML 500 ML IV SCH ×2 (14:00→23:16)
[2018-11-18] MEDS: KCL 10MEQ/100ML 10 MEQ/100 ML BAG IV SCH ×2 (16:05→21:02)
[2018-11-18] MEDS: ROCEPHIN/NS 2 GM/100 ML 2 GM/100 ML BAG IV SCH (17:22)
[2018-11-19 05:34] LABS: BUN/Creatinine Ratio 5; Blood Urea Nitrogen 2 mg/dL (7-17); Hemolysis Index 0
[2018-11-19] MEDS: D5W/0.45% NACL/KCL 20 MEQ 20 MEQ/1,000 ML BAG IV SCH (05:36)
[2018-11-19] MEDS: VANCOMYCIN 1,500 MG in NACL 0.9% 500 ML 500 ML IV SCH (05:36)
[2018-11-19] MEDS: KCL 10MEQ/100ML 10 MEQ/100 ML BAG IV SCH ×4 (09:14→15:45)
[2018-11-19] MEDS: SODIUM CHLORIDE FLUSH SYRINGE 10 ML IV SCH (09:16)
[2018-11-19] MEDS: LOVENOX SUB-Q SCH (09:16)
[2018-11-19] MEDS: POTASSIUM CHLORIDE PO SCH (09:16)
[2018-11-19] MEDS: ROCEPHIN/NS 2 GM/100 ML 2 GM/100 ML BAG IV SCH (09:16)
--- NOTE | 2018-11-19 10:00 | Progress Note ---
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 1. Presumed Pneumococcal Pneumonia: CXR with focal consolidation left lower lobe. 11/13/18 Blood cultures grew Strep pneumoniae 1 out of 4 bottles. 2. Strep pneumoniae Bacteremia: 1 out of 4 bottles. Always a pathogen. Repeat blood culture 11/16/18 negative. TTE shows no valvular vegetation. 2. HIV she is intermittently compliant with her ART, she notes increased only stopping taking it 2 weeks ago but was only compliant for a couple of months. Her home regimen is Genvoya and Prezista. She is educated enough to know that it is preferable to stop outright then to take on intermittent days. I will defer starting her ART to the outpatient setting as we do not have her current medications, nor an updated genotype to ensure a similar but different regimen would be effective. We'll check a viral load and CD4 count. Her most recent genotype here in March 2017 showed resistance to stop AZT, stavudine and posible resistance to abacavir, TDF, and didanovir. Recs: - continue ceftriaxone 2 gm IV qday - f/u CD4 and viral load - ok to discharge on levaquin 750 mg PO qday total 10 days from negative blood culture until 11/24/2018 - patient desires to return back home in [facility] where she sees her HIV provider, educated to f/u with her HIV next week [facility] M: [phone] O:[phone] Subjective Date of service: 11/19/18 Principal diagnosis: pneumonia Interval history: Patient seen and examined. Sitting up in bed. Reports improved respiratory status. No acute distress. No fevers. Objective - Exam Narrative Exam: Constitutional: Awake. Alert. No acute distress Head, Ears, Nose: Normocephalic, atraumatic. External ears, nose normal Eyes: Conjunctivae/corneas clear. No icterus. No ptosis. Neck: Supple, no meningeal signs Oral: fair dentition, moist mucous membranes Cardiovascular: S1, S2 normal. Normal rhythm Respiratory: bilateral rhonchi , + dry cough GI: Soft, non-tender; bowel sounds normal. No peritoneal signs Musculoskeletal: No pedal edema, Skin: No rash or abscess Hem/Lymphatic: No palpable cervical or supraclavicular nodes. No lymphangitis Psych: no agitation Neurological: Moves all extremities, no focal defects - Constitutional Vitals: Vital Signs Temp Pulse Resp BP Pulse Ox 98.8 F 91 H 20 128/84 100 11/19/18 06:01 11/19/18 06:01 11/19/18 06:01 11/19/18 06:01 11/19/18 06:01 Temperature -Last 24 Hours Temperature 98.8 F Temperature 98.6 F Temperature 98.6 F Temperature 98.5 F - Labs CBC & Chem 7: 11/18/18 05:07 11/19/18 04:58 Labs: Abnormal lab results 11/19/18 Range/Units 04:58 Potassium 3.2 L (3.6-5.0) mmol/L BUN 2 L (7-17) mg/dL Creatinine 0.4 L (0.7-1.2) mg/dL Glucose 107 H (65-100) mg/dL Calcium 8.0 L (8.4-10.2) mg/dL
--- NOTE | 2018-11-19 12:40 | Discharge Summary ---
Providers - Providers Date of Admission: 11/13/18 23:29 Date of discharge: 11/19/18 Attending physician: JENNIFER CALIXTO 11/14/18 11:54 Consult to Physician [CONS] Routine Comment: Consulting Provider: RAMON BELLA Physician Instructions: Reason For Exam: HIV with PNA and sepsis Primary care physician: RICHARD EDWARD Hospitalization Condition: Stable Pertinent studies: CTA chest: 1. No evidence of pulmonary embolus. 2. Left lower lobe consolidation consistent with pneumonia. 3. Interstitial fibrosis and bronchiectasis. Hospital course: 23 yo F PMHx of congenital HIV (not on ART presently and noncompliant with therapy) who presents to the ER due to SOB and cough associated with subjective fevers at home as well as L chest and side pain. She is from [place] and She has an ID doctor there she occasionally follows with. her normal regimen is Genvoya and Prezista. She notes stopping these medications a couple of weeks ago as she "became too busy and forgot". She is not currently taking Bactrim (not instructed to) nor was she prescribed azithromycin. She is unsure of her most recent CD4 count or viral load. She was also previously seen here for pneumonia in March 2017 and was evaluated by our office. At that time her CD4 count was 14, and her viral load was 100,000. She has a history of intermittently taking her ART for months at a time followed by not taking it for months at a time. In the ER her chest CT showed left lower lobe consolidation and interstitial fibrosis. Chest x-ray with the same left lower lobe pneumonia. Blood cultures grew Strep Pneumoniae /4 bottle . TTE showed no vegetation, repleted K, given iv abx per ID and monitored BMP and fever curve. She improved clinically, and was discharged with po levaquin till 11/24/2018 and recommended to f/u with her HIV doctor at [facility]. Discharge diagnosis and management: Sepsis with pneumonia and bacteremia - Blood culture grew Strep Pneumoniae, likely source from Strep Pneumoniae PNA - placed on IV antibiotics, ordered TTE showed no vegetation - will cont levaquin 750 mg PO qday total 10 days from negative blood culture until 11/24/2018 CAP with Strep Pneumoniae - Consulted ID, plaved on nebs as needed, iv fluid, IV abx - Supplemental O2 to keep O2 sat >92 - Imaging not consistent with PJP, but ordered [id number] by ID to rule out. - discharged with will cont levaquin 750 mg PO qday total 10 days from negative blood culture until 11/24/2018 Asthma with exacerbation - nebs as needed, - Supplemental O2 to keep O2 sat >92 HIV, congenital Noncompliance with HAART - ID consulted, counseled for compliance - ordered Cd4 count and viral load - pending - patient desires to return back home in [facility] where she sees her HIV provider, educated to f/u with her HIV next week GILDA, due to vasomotor nephropathy - cont iv fluid, resolved Hypokalemia, - Repleted and monitored BMP - counselled on K rich diet, and prescribed K-dur on discharge - repeat BMP in one week Anemia of CD - h/h stable DVT Px, with Lovenox Physical exam: General appearance: Present: no acute distress, well-nourished - EENT Eyes: PERRL, EOM intact ENT: hearing intact, clear oral mucosa Ears: bilateral: normal - Neck Neck: supple, normal ROM - Respiratory Respiratory effort: normal Respiratory: bilateral: CTA - Cardiovascular Rhythm: regular Heart Sounds: Present: S1 & S2. Absent: gallop, rub Extremities: pulses intact, No edema, normal color, Full ROM - Gastrointestinal General gastrointestinal: Present: soft, non-tender, non-distended, normal bowel sounds - Integumentary Integumentary: clear, warm, dry - Musculoskeletal Musculoskeletal: 1, strength equal bilaterally - Neurologic Neurologic: moves all extremities - Psychiatric Psychiatric: memory intact, appropriate mood/affect, intact judgment & insight Disposition: DC-01 TO HOME OR SELFCARE Time spent for discharge: 34 minutes Core Measure Documentation - Palliative Care Palliative Care/ Comfort Measures: Not Applicable - Core Measures Any of the following diagnoses?: none Exam - Constitutional Vitals: Temp Pulse Resp BP Pulse Ox 98.8 F 91 H 20 128/84 100 11/19/18 06:01 11/19/18 06:01 11/19/18 06:01 11/19/18 06:01 11/19/18 06:01 Plan Activity: advance as tolerated Weight Bearing Status: Weight Bear as Tolerated Diet: regular, other (K rich food - bananas, beans, squash, avocado etc) Wound: other Additional Instructions: repeat BMP in one week Follow up with: RICHARD EDWARD MD [Primary Care Provider] - 3-5 Days Prescriptions: Potassium Chloride [K-Dur] 20 meq PO BID #10 tab levoFLOXacin [Levaquin] 750 mg PO QDAY #5 tablet Ibuprofen [Motrin 800 MG tab] 800 mg PO Q8HR PRN #20 tablet PRN Reason: Pain, Moderate (4-6) Ondansetron (Nf) [Zofran TAB] 8 mg PO Q8HR PRN #10 tablet PRN Reason: Nausea
[2018-11-19 13:21] VITALS: BP 145/102
== END 2018-11-19 18:20 | disposition home or self-care (01) | DRG 871 ==
LOC: ED 16:35 → 3A 23:29
PROVIDERS: ADMIT Internal Medicine; ATTEND Internal Medicine
DX: A40.3 Sepsis due to Streptococcus pneumoniae (principal); J18.1 Lobar pneumonia, unspecified organism; N17.0 Acute kidney failure with tubular necrosis; J45.901 Unspecified asthma with (acute) exacerbation; D63.8 Anemia in other chronic diseases classified elsewhere; I10 Essential (primary) hypertension; E87.6 Hypokalemia; Z21 Asymptomatic human immunodeficiency virus [HIV] infection status; J45.909 Unspecified asthma, uncomplicated; Z82.49 Family history of ischemic heart disease and other diseases of the circulatory system; Z91.14 Patient's other noncompliance with medication regimen
CPT/HCPCS: 36415; 71045; 71046; 71275; 80048; 80053; 80202; 81001; 81025; 82024; 82140; 85007; 85025; 85027; 85379; 87040; 87076; 87086; 87186; 87535; 93005; 93010; 93306; G0378; J0692; J0696; J1650; J2405; J3370; J3480; J7030; J7040; J7050; Q9967